=== PATIENT | male | born 1945 | race Two or more races ===

== ENCOUNTER 2017-07-24 17:53 | Emergency (ER) | payer MEDICARE, MEDICAID ==
[~2017-07-24] VITALS: Ht 190.5 cm; Wt 108.9 kg
[~2017-07-24 17:53] MED LIST: ASPI81CH43; ATEN-60; ENAL20TA93; EZET10TA38; FEXO30TA; GLIP-110; METF-370; PIOG45TA8; ZOLP-158
[2017-07-24 18:43] LABS: Basophils # (auto) 0.1 uL; Basophils % (auto) 0.9 % (0.0-2.0); Eosinophils # (auto) 0.1 uL; Eosinophils % (auto) 1.1 % (0.0-7.0); Hematocrit 44.6 % (41.0-53.0); Hemoglobin 14.5 g/dL (13.5-17.5); Lymphocytes # (auto) 0.9 uL; Lymphocytes % (auto) 7.2 % (10.0-50.0); Mean Corpuscular Hemoglobin 28.5 pg (28.0-32.0); Mean Corpuscular Hgb Conc. 32.6 g/dL (32.0-36.0); Mean Corpuscular Volume 87.3 fL (80.0-100.0); Monocytes # (auto) 1.2 uL; Monocytes % (auto) 9.2 % (0.0-12.0); Neutrophils # (auto) 10.3 uL; Neutrophils % (auto) 81.6 % (37.0-80.0); Nucleated Red Blood Cells % 0.8 %; Platelet Count (auto) 188 10^3/uL (140-450); Red Blood Cells 5.11 10^6/uL (4.5-5.90); Red Cell Distribution Width 13.8 % (11.8-14.3); White Blood Cell 12.6 10^3/uL (4.4-10.8)
[2017-07-24 19:05] LABS: Alanine Aminotransferase 41 U/L (16-61); Albumin 3.6 g/dL (3.4-5.0); Alkaline Phosphatase 92 U/L (45-117); Anion Gap 10 (5-15); Aspartate Aminotransferase 23 U/L (15-37); BUN/Creatinine Ratio 14.3; Bilirubin, Total 0.3 mg/dL (0.2-1.0); Blood Urea Nitrogen 14 mg/dL (7-18); Calcium 8.6 mg/dL (8.5-10.1); Carbon Dioxide 25 mmol/L (21-32); Chloride 106 mmol/L (98-107); GFR African American 97 mL/min; GFR Non-African American 80 mL/min; Glucose 123 mg/dL (74-106); Magnesium 1.7 mg/dL (1.6-2.6); Potassium 3.9 mmol/L (3.5-5.1); Sodium 141 mmol/L (136-145); Total Protein 7.7 g/dL (6.4-8.2)
[2017-07-24] MEDS ORDERED: ACETAMINOPHEN 500 MG TAB PO ONE (22:30)
[2017-07-24] MEDS ORDERED: LORazepam 2MG/ML-1ML VIAL IV ONE (22:45)
[2017-07-24 23:42] LABS: Urine Bacteria FEW /hpf (None Seen); Urine Blood Negative /uL (Negative); Urine Mucus FEW (None Seen); Urine Specific Gravity 1.026 (1.001-1.035); Urine WBC 2 /hpf (0 - 3)
[2017-07-25 00:25] VITALS: BP 130/68
[2017-07-25] MEDS ORDERED: LEVOFLOXACIN 250 MG TAB PO ONE (02:30)
== END 2017-07-25 03:00 | disposition home or self-care (01) ==
LOC: EDBD 17:53 → ER 17:57
DX: R42 Dizziness and giddiness (principal); R26.9 Unspecified abnormalities of gait and mobility; I10 Essential (primary) hypertension; E11.51 Type 2 diabetes mellitus with diabetic peripheral angiopathy without gangrene; Z95.5 Presence of coronary angioplasty implant and graft
CPT/HCPCS: 36415; 51702; 70450; 71045; 74176; 80053; 81001; 82962; 83735; 84484; 85025; 93005; 94761

== ENCOUNTER → 2017-10-26 | Outpatient (CLI) | payer MEDICARE, MEDICAID ==
[2017-10-26 13:35] LABS: Albumin 3.6 g/dL (3.4-5.0); BUN/Creatinine Ratio 17.8; Bilirubin, Total 0.5 mg/dL (0.2-1.0); Calcium 8.7 mg/dL (8.5-10.1); Potassium 4.5 mmol/L (3.5-5.1); Total Protein 7.7 g/dL (6.4-8.2)
== END | disposition home or self-care (01) ==
LOC: LAB 09:12
PROVIDERS: ATTEND Internal Medicine
DX: E78.5 Hyperlipidemia, unspecified (principal); I10 Essential (primary) hypertension; E11.9 Type 2 diabetes mellitus without complications
CPT/HCPCS: 36415; 80053; 80061; 83036

== ENCOUNTER → 2018-02-03 | Outpatient (CLI) | payer MEDICARE, MEDICAID ==
[2018-02-03 14:04] LABS: Calcium 8.8 mg/dL (8.5-10.1); Potassium 4.5 mmol/L (3.5-5.1)
[2018-02-03 14:12] LABS: Albumin 3.7 g/dL (3.4-5.0); BUN/Creatinine Ratio 19.8; Bilirubin, Total 0.6 mg/dL (0.2-1.0)
== END | disposition home or self-care (01) ==
LOC: LAB 09:04
PROVIDERS: ATTEND Internal Medicine
DX: E78.5 Hyperlipidemia, unspecified (principal); I10 Essential (primary) hypertension; E11.9 Type 2 diabetes mellitus without complications
CPT/HCPCS: 36415; 80053; 80061; 83036

== ENCOUNTER → 2018-02-27 | Outpatient (CLI) | payer MEDICARE, MEDICAID | END | disposition home or self-care (01) | LOC: LAB 09:05 | PROVIDERS: ATTEND Internal Medicine | DX: R94.4 Abnormal results of kidney function studies (principal) | CPT/HCPCS: 36415; 82565; 84520 ==

== ENCOUNTER 2018-04-06 15:44 | Inpatient (IN) | payer MEDICARE, MEDICAID ==
[~2018-04-06] VITALS: Ht 185.4 cm; Wt 103.0 kg
[2018-04-06 16:54] LABS: Chloride 105 mmol/L (98-107); Potassium 4.1 mmol/L (3.5-5.1); Sodium 140 mmol/L (136-145)
[2018-04-06 17:04] LABS: Alanine Aminotransferase 97 U/L (16-61); Albumin 3.4 g/dL (3.4-5.0); Alkaline Phosphatase 102 U/L (45-117); Anion Gap 8 (5-15); Aspartate Aminotransferase 46 U/L (15-37); BUN/Creatinine Ratio 17.4; Bilirubin, Total 0.3 mg/dL (0.2-1.0); Blood Urea Nitrogen 15 mg/dL (7-18); Calcium 8.2 mg/dL (8.5-10.1); Carbon Dioxide 27 mmol/L (21-32); GFR African American 113 mL/min; GFR Non-African American 93 mL/min; Glucose 219 mg/dL (74-106); Total Protein 7.1 g/dL (6.4-8.2)
[2018-04-06 17:10] LABS: Basophils # (auto) 0.1 uL; Basophils % (auto) 1.1 % (0.0-2.0); Eosinophils # (auto) 0.2 uL; Hematocrit 43.2 % (41.0-53.0); Hemoglobin 13.9 g/dL (13.5-17.5); Lymphocytes # (auto) 2.4 uL; Lymphocytes % (auto) 30.4 % (10.0-50.0); Mean Corpuscular Hemoglobin 29.1 pg (28.0-32.0); Mean Corpuscular Hgb Conc. 32.2 g/dL (32.0-36.0); Mean Corpuscular Volume 90.3 fL (80.0-100.0); Monocytes # (auto) 1.1 uL; Monocytes % (auto) 14.1 % (0.0-12.0); Neutrophils # (auto) 4.1 uL; Neutrophils % (auto) 52.4 % (37.0-80.0); Nucleated Red Blood Cells % 0.3 %; Platelet Count (auto) 194 10^3/uL (140-450); Red Blood Cells 4.78 10^6/uL (4.5-5.90); Red Cell Distribution Width 14.3 % (11.8-14.3); White Blood Cell 7.9 10^3/uL (4.4-10.8)
[2018-04-06] MEDS ORDERED: MORPHINE SULFATE 10 MG/ML INJ 1ML SDV IV PRN (19:30)
[2018-04-06] MEDS ORDERED: NITROGLYCERIN 0.4 MG SL TAB SL PRN (19:30)
[2018-04-06] MEDS ORDERED: DEXTROSE (50%) 50ML SYRG IV PRN (19:30)
[2018-04-06] MEDS ORDERED: CHOL20007 PO (21:37)
[2018-04-06] MEDS ORDERED: PIO30T PO (21:37)
[2018-04-06] MEDS ORDERED: ATO40T PO (21:37)
[2018-04-06] MEDS ORDERED: ATEN-60 PO (21:37)
[2018-04-06] MEDS ORDERED: ENA10T PO (21:37)
[2018-04-06] MEDS ORDERED: METF-372 PO (21:37)
[2018-04-06] MEDS ORDERED: ASPI81CH43 PO (21:37)
[2018-04-06] MEDS ORDERED: FLUT1SPR5 (21:37)
[2018-04-06] MEDS ORDERED: RISP0.2535 PO (21:37)
[2018-04-06] MEDS ORDERED: GLIP-115 PO (21:37)
[2018-04-06] MEDS ORDERED: AMLO2.5T6 PO (21:37)
[2018-04-06 21:38] VITALS: BP 147/78
[2018-04-06] MEDS: ACCU-CHEK COMFORT CURVE STRIP VI SCH (22:00)
[2018-04-06] MEDS: InsuLIN REG 1unit/0.01ml Soln (100units/ml) SC SCH (22:00)
[2018-04-06] MEDS: metFORMIN HYDROCHLORIDE 500 MG TAB PO SCH (22:33)
[2018-04-06] MEDS: ATORVASTATIN 20 MG TAB PO SCH (22:34)
--- NOTE | 2018-04-06 23:00 | NUR ---
PATIENT ADMITTED TO ROOM 294A. CAREGIVER AT BEDSIDE. PATIENT IS MENTALLY ELAYED. INCOMPREHENSIBLE. VERY HARD TO UNDERSTAND. SKIN CLEAR. INCONTINENT OF URINE. IV PATENT AND INTACT. SITTER ATR BEDSIDE
[2018-04-07 05:23] VITALS: BP 145/71
[2018-04-07] MEDS: ACCU-CHEK COMFORT CURVE STRIP VI SCH ×4 (06:37→21:39)
[2018-04-07] MEDS: InsuLIN REG 1unit/0.01ml Soln (100units/ml) SC SCH ×4 (06:37→21:40)
--- NOTE | 2018-04-07 07:15 | NUR ---
Opening Shift Note Received report from Marcela MARTINS. Assumed care of patient, awake and mentally delayed. Moves a lot on bed. Noted sitter at bedside. No S/S of distress/SOB or pain. Instructed on POC and to call for assist PRN, will continue to monitor for changes Q1hr and PRN.
[2018-04-07 08:00] VITALS: BP 125/73
[2018-04-07 08:44] VITALS: BP 125/73
[2018-04-07] MEDS: amLODIPine BESYLATE 5 MG TAB PO SCH (09:57)
[2018-04-07] MEDS: ENALAPRIL MALEATE 10 MG TAB PO SCH (09:58)
[2018-04-07] MEDS: ASPirin 81 mg TAB PO SCH (09:58)
[2018-04-07] MEDS: metFORMIN HYDROCHLORIDE 500 MG TAB PO SCH ×2 (09:59→17:28)
[2018-04-07] MEDS ORDERED: ATENOLOL 25 MG TAB PO SCH (10:00)
[2018-04-07] MEDS ORDERED: glipiZIDE 5 MG TAB PO SCH (10:00)
[2018-04-07] MEDS ORDERED: risperiDONE 1 MG TAB PO SCH (10:00)
[2018-04-07] MEDS: FLUTICASONE PROP NASAL SPR 0.05 % (50MCG) 16GM EACHNOSTRI SCH (10:28)
[2018-04-07] MEDS: ERGOCALCIFEROL 50,000 UNIT(1.25MG) CAP PO SCH (10:28)
[2018-04-07 11:55] VITALS: BP 150/76
[2018-04-07 12:56] LABS: Urine WBC None Seen /hpf (0 - 3)
[2018-04-07 13:29] LABS: Urine Bacteria NONE SEEN /hpf (None Seen); Urine Blood Negative /uL (Negative); Urine Specific Gravity 1.021 (1.001-1.035)
[2018-04-07] MEDS: ATENOLOL 25 MG TAB PO SCH (14:47)
--- NOTE | 2018-04-07 15:44 | NUR ---
INFORMED DR. HERNANDEZ BY PHONE ABOUT PATIENT'S CAREGIVER IF LUMBAR PUNCTURE IS NEEDED FOR THE PATIENT. WILL WAIT FOR CALL BACK.
--- NOTE | 2018-04-07 15:55 | NUR ---
Dr. Pickens at bedside. Received verbal order to place neurology consult for lumbar puncture.
[2018-04-07 17:02] VITALS: BP 133/69
--- NOTE | 2018-04-07 17:40 | NUR ---
INFORMED DR. OLIVERA ABOUT THE NEURO CONSULT AND PATIENT IS ASKING WHEN WILL BE THE LUMBAR PUNCTURE BE SCHEDULED. SAID HE WILL TALK TO THE PATIENT AND CAREGIVER.
--- NOTE | 2018-04-07 18:48 | NUR ---
PATIENT' S CAREGIVER, CARMELO, SIGNED THE CONSENTS FOR LUMBAR PUNCTURE AFTER DISCUSSING THE SAID PROCEDURE WITH DR. OLIVREA. LUMBAR PUNCTURE TRAY SET PREPARED AT BEDSIDE.
--- NOTE | 2018-04-07 19:30 | NUR ---
Opening Shift Note Received report from day shift RN. Patient, awake and mentally delayed. alert and orientated x3. direct support professional caregiver at bedside also sitter at bedside for safety. No S/S of distress/SOB on room air. Denies pain. Patient is scheduled to have bedside lumbar puncture tomorrow morning by Dr. Ordaz. Consents signed in chart, tray at bedside. Per report Patient does not need check list completed and does not need to be NPO. Instructed on POC and to call for assist PRN, will continue to monitor for changes Q1hr and PRN.
[2018-04-07 19:31] LABS: INR 0.98 (0.9-1.15); Prothrombin Time 10.5 sec (9.27-12.13)
[2018-04-07] MEDS: ATORVASTATIN 20 MG TAB PO SCH (21:39)
[2018-04-07] MEDS: risperiDONE 1 MG TAB PO SCH (21:39)
[2018-04-07 22:00] VITALS: BP 145/70
[2018-04-08 05:59] VITALS: BP 152/74
[2018-04-08] MEDS: ACCU-CHEK COMFORT CURVE STRIP VI SCH ×4 (06:22→20:33)
[2018-04-08] MEDS: InsuLIN REG 1unit/0.01ml Soln (100units/ml) SC SCH ×4 (06:22→20:34)
[2018-04-08] MEDS: glipiZIDE 5 MG TAB PO SCH (06:57)
--- NOTE | 2018-04-08 07:30 | NUR ---
RECEIVED REPORT FROM NIGHT NURSE. PATIENT RESTING IN BED, SITTER AT BEDSIDE. WILL CONTINUE TO MONITOR.
[2018-04-08 09:00] VITALS: BP 142/70
--- NOTE | 2018-04-08 09:30 | NUR ---
DOCTOR OLIVERA AT BEDSIDE. LUMBAR PUNCTURE PROCEDURE CONDUCTED. UNSUCCESSFUL AT LUMBAR PUNCTURE, RADIOLOGY CONSULTED.
[2018-04-08] MEDS ORDERED: LIDOCAINE 1% HCL (LOCAL ANESTH.) INJ 20ML MDV ID ONE (09:35)
[2018-04-08] MEDS ORDERED: LIDOCAINE 1% (LOCAL ANESTH.) PF 5ml SDV ONE (09:36)
[2018-04-08] MEDS: amLODIPine BESYLATE 5 MG TAB PO SCH (10:00)
[2018-04-08] MEDS: ASPirin 81 mg TAB PO SCH (10:00)
[2018-04-08] MEDS: ERGOCALCIFEROL 50,000 UNIT(1.25MG) CAP PO SCH (10:00)
[2018-04-08] MEDS: ENALAPRIL MALEATE 10 MG TAB PO SCH (10:01)
[2018-04-08] MEDS: metFORMIN HYDROCHLORIDE 500 MG TAB PO SCH ×2 (10:01→18:27)
[2018-04-08] MEDS: FLUTICASONE PROP NASAL SPR 0.05 % (50MCG) 16GM EACHNOSTRI SCH (10:41)
[2018-04-08 13:00] VITALS: BP 147/74
[2018-04-08] MEDS ORDERED: CHOLECALCIFEROL (VITD3) 1,000 UNIT TAB PO SCH (13:00)
[2018-04-08] MEDS: ATENOLOL 25 MG TAB PO SCH (15:37)
[2018-04-08 17:47] VITALS: BP 149/87
--- NOTE | 2018-04-08 19:30 | NUR ---
Opening Shift Note Received report from day shift RN. Patient, awake and mentally delayed. alert and orientated x3. Sitter at bedside for safety. No S/S of distress/SOB on room air. Denies pain. Instructed on POC and to call for assist PRN, will continue to monitor for changes Q1hr and PRN.
[2018-04-08] MEDS: ATORVASTATIN 20 MG TAB PO SCH (20:32)
[2018-04-08] MEDS: risperiDONE 1 MG TAB PO SCH (20:32)
[2018-04-08 22:00] VITALS: BP 136/73
[2018-04-09 05:00] VITALS: BP 142/70
[2018-04-09] MEDS: InsuLIN REG 1unit/0.01ml Soln (100units/ml) SC SCH ×4 (05:51→21:37)
[2018-04-09] MEDS: ACCU-CHEK COMFORT CURVE STRIP VI SCH ×4 (05:51→21:36)
[2018-04-09] MEDS: glipiZIDE 5 MG TAB PO SCH (06:08)
--- NOTE | 2018-04-09 07:30 | NUR ---
RECEIVED REPORT FROM NIGHT NURSE. PATIENT RESTING IN BED, NO DISTRESS NOTED. SITTER AT BEDSIDE.
[2018-04-09] MEDS: metFORMIN HYDROCHLORIDE 500 MG TAB PO SCH ×2 (08:12→18:09)
[2018-04-09 08:54] VITALS: BP 140/68
[2018-04-09] MEDS: CHOLECALCIFEROL (VITD3) 1,000 UNIT TAB PO SCH (10:32)
[2018-04-09] MEDS: ENALAPRIL MALEATE 10 MG TAB PO SCH (10:33)
[2018-04-09] MEDS: ASPirin 81 mg TAB PO SCH (10:33)
[2018-04-09] MEDS: amLODIPine BESYLATE 5 MG TAB PO SCH (10:33)
[2018-04-09] MEDS: FLUTICASONE PROP NASAL SPR 0.05 % (50MCG) 16GM EACHNOSTRI SCH (10:37)
[2018-04-09 13:00] VITALS: BP 143/86
[2018-04-09] MEDS ORDERED: LORazepam 2MG/ML-1ML VIAL IV PRN (13:30)
[2018-04-09] MEDS: ATENOLOL 25 MG TAB PO SCH (15:16)
[2018-04-09 17:35] VITALS: BP 146/76
--- NOTE | 2018-04-09 19:31 | NUR ---
Opening Shift Note Assumed care of patient, awake and alert. No S/S of distress/SOB. Pt is currently in bed with the rails up x2, bed is locked in the lowest position and call light is within reach. 20Ga IV in the right hand flushes without discomfort. Instructed on POC and to call for assist as needed. Will continue to monitor.
[2018-04-09] MEDS: risperiDONE 1 MG TAB PO SCH (21:36)
[2018-04-09] MEDS: ATORVASTATIN 20 MG TAB PO SCH (21:36)
[2018-04-09 21:38] VITALS: BP 143/69
[2018-04-10 05:09] VITALS: BP 134/74
[2018-04-10] MEDS: glipiZIDE 5 MG TAB PO SCH (06:16)
[2018-04-10] MEDS: InsuLIN REG 1unit/0.01ml Soln (100units/ml) SC SCH ×4 (06:16→22:00)
[2018-04-10] MEDS: ACCU-CHEK COMFORT CURVE STRIP VI SCH ×4 (06:17→22:00)
[2018-04-10] MEDS: metFORMIN HYDROCHLORIDE 500 MG TAB PO SCH ×2 (07:47→17:52)
[2018-04-10 08:00] VITALS: BP 134/76
--- NOTE | 2018-04-10 08:15 | NUR ---
Opening Shift Note Assumed care of patient, awake and alert with confusion. Respiratory even and unlabored. No S/S of distress/SOB or pain. Skin is warm and dry to touch, no s/s of hyperglycemia or hypoglycemia noted. Instructed on POC and to call for assist PRN, will continue to monitor for changes Q1hr and PRN.
[2018-04-10 08:49] VITALS: BP 134/76
[2018-04-10] MEDS ORDERED: LIDOCAINE 2% (LOCAL ANESTH.) PF 5ml SDV ONE (09:11)
[2018-04-10] MEDS: CHOLECALCIFEROL (VITD3) 1,000 UNIT TAB PO SCH (09:12)
[2018-04-10] MEDS: amLODIPine BESYLATE 5 MG TAB PO SCH (09:13)
[2018-04-10] MEDS: ENALAPRIL MALEATE 10 MG TAB PO SCH (09:13)
[2018-04-10] MEDS: FLUTICASONE PROP NASAL SPR 0.05 % (50MCG) 16GM EACHNOSTRI SCH (09:13)
[2018-04-10] MEDS: ASPirin 81 mg TAB PO SCH (09:13)
--- NOTE | 2018-04-10 10:45 | NUR ---
Patient came back from radiology s/p lumbar puncture, instructed patient to lie flat 4 hours. Patient verbalized understanding.
--- NOTE | 2018-04-10 11:10 | NUR ---
Patient off unit for lumbar puncture. Addendum: 04/10/18 at 1457 by DEJAH MORAN RN patient left around 0945 AM.
[2018-04-10 11:24] LABS: CSF White Blood Cells 1 CUMM (0-5)
[2018-04-10 11:31] LABS: Protein, CSF 61.7 mg/dL (15-45)
--- NOTE | 2018-04-10 14:33 | NUR ---
Nutrition Assessment Notes please see attached link for complete assessment Est. Needs ABW [id number] kcal (23-25 kcal/kgBW), 95-104 gms pro (1.0-1.1gms/kgBW). Will continue to monitor pertinent labs and reassess nutrient need prn Addendum: 04/10/18 at [address] Amended: Links added.
--- NOTE | 2018-04-10 14:49 | NUR ---
IV insertion IV access obtained, via clean sterile technique by inserting 22 gauge catheter at after attempt(s). IV secured properly. No trauma to site. Patient tolerated well.
[2018-04-10] MEDS: ATENOLOL 25 MG TAB PO SCH (15:37)
--- NOTE | 2018-04-10 19:30 | NUR ---
Opening Shift Note Assumed care of patient, oriented to self only, speech unclear, cooperative to care, sitter at bedside. No S/S of distress/SOB or pain. Safety precaution in place, will continue to monitor for changes Q1hr and PRN.
--- NOTE | 2018-04-10 19:55 | NUR ---
Dr. Ordaz at bedside. Walked patient about 40ft, gait unsteady at this time, will continue to monitor
[2018-04-10 20:00] VITALS: BP 141/68
[2018-04-10] MEDS: ATORVASTATIN 20 MG TAB PO SCH (21:43)
[2018-04-10] MEDS: risperiDONE 1 MG TAB PO SCH (21:43)
[2018-04-11 05:04] VITALS: BP 140/75
[2018-04-11] MEDS: InsuLIN REG 1unit/0.01ml Soln (100units/ml) SC SCH ×4 (06:11→22:00)
[2018-04-11] MEDS: ACCU-CHEK COMFORT CURVE STRIP VI SCH ×4 (06:11→22:00)
[2018-04-11] MEDS: glipiZIDE 5 MG TAB PO SCH (06:12)
[2018-04-11 09:07] VITALS: BP 119/49
[2018-04-11] MEDS: amLODIPine BESYLATE 5 MG TAB PO SCH (10:00)
[2018-04-11] MEDS: ENALAPRIL MALEATE 10 MG TAB PO SCH (10:00)
[2018-04-11] MEDS: ASPirin 81 mg TAB PO SCH (10:42)
[2018-04-11] MEDS: CHOLECALCIFEROL (VITD3) 1,000 UNIT TAB PO SCH (10:43)
[2018-04-11] MEDS: metFORMIN HYDROCHLORIDE 500 MG TAB PO SCH ×2 (10:44→18:00)
[2018-04-11] MEDS: FLUTICASONE PROP NASAL SPR 0.05 % (50MCG) 16GM EACHNOSTRI SCH (10:45)
[2018-04-11 14:43] VITALS: BP 129/64
[2018-04-11] MEDS: ATENOLOL 25 MG TAB PO SCH (15:00)
[2018-04-11 17:24] VITALS: BP 136/72
--- NOTE | 2018-04-11 19:19 | NUR ---
Opening Shift Note Assumed care of patient, awake and alert to himself only at this time. No S/S of distress/SOB or pain. Instructed on plan of care and to call for assistance as needed. Bed is locked and lowered with side rails up x2. Sitter at bedside. Call light within reach. Will continue to monitor.
--- NOTE | 2018-04-11 19:21 | NUR ---
Closing Note Patient resting in bed. mechanical reliability engineer at bedside. Sitter at bedside. Report given. Will endorse care to the overnight associate RN.
--- NOTE | 2018-04-11 19:35 | NUR ---
Opening Shift Note Assumed care of patient, oriented to self only, speech unclear, cooperative to care, sitter at bedside. No S/S of distress/SOB or pain. Safety precaution in place, call light within reach, will continue to monitor for changes Q1hr and PRN.
--- NOTE | 2018-04-11 20:20 | NUR ---
Dr. Ordaz at bedside. Ambulated patient in the hallway and able to walk around 37 seconds going and 43 seconds back, gait still unsteady, will continue care
[2018-04-11] MEDS: risperiDONE 1 MG TAB PO SCH (21:41)
[2018-04-11] MEDS: ATORVASTATIN 20 MG TAB PO SCH (21:41)
[2018-04-11 22:08] VITALS: BP 117/60
[2018-04-12 04:59] VITALS: BP 138/78
[2018-04-12] MEDS: InsuLIN REG 1unit/0.01ml Soln (100units/ml) SC SCH ×4 (05:42→21:35)
[2018-04-12] MEDS: ACCU-CHEK COMFORT CURVE STRIP VI SCH ×4 (05:42→21:34)
[2018-04-12] MEDS: glipiZIDE 5 MG TAB PO SCH (05:43)
--- NOTE | 2018-04-12 07:30 | NUR ---
Opening Shift Note Assuming care of patient at this time. Patient is awake and alert to himself and location at this time. Patient's speech is incomprehensible. Patient shows no signs or symptoms of distress or shortness of breath. Patient is resting comfortably in bed with bed locked and lowered to the lowest position, side rails up x2. Instructed patient on the plan of care for today and to call for assistance as needed. Sitter at bedside. Will continue to monitor.
[2018-04-12] MEDS: metFORMIN HYDROCHLORIDE 500 MG TAB PO SCH ×2 (08:59→17:43)
[2018-04-12] MEDS: ASPirin 81 mg TAB PO SCH (08:59)
[2018-04-12] MEDS: CHOLECALCIFEROL (VITD3) 1,000 UNIT TAB PO SCH (08:59)
[2018-04-12] MEDS: FLUTICASONE PROP NASAL SPR 0.05 % (50MCG) 16GM EACHNOSTRI SCH (09:00)
[2018-04-12] MEDS: ENALAPRIL MALEATE 10 MG TAB PO SCH (09:03)
[2018-04-12] MEDS: amLODIPine BESYLATE 5 MG TAB PO SCH (09:03)
[2018-04-12 09:27] VITALS: BP 138/78
--- NOTE | 2018-04-12 09:30 | NUR ---
Re: Lumbar Puncture Received a call from Dr. Ordaz, there will be a repeat lumbar puncture today. LAKSHMI Soto has given me consent forms. Will have patient's caregivers sign consent forms when they arrive.
--- NOTE | 2018-04-12 10:00 | NUR ---
UNABLE TO DO LP AT THIS TIME. LITHOGRAPHIC ETCHER REFUSING TO SIGN CONSENT BEFORE TALKING TO DR OLIVERA
--- NOTE | 2018-04-12 11:35 | NUR ---
RE: Patient off Unit Patient is off unit at this time, having procedure.
[2018-04-12] MEDS ORDERED: LIDOCAINE 2% (LOCAL ANESTH.) PF 5ml SDV ONE ×3 (11:49→12:30)
--- NOTE | 2018-04-12 13:15 | NUR ---
Re: Page to Dr. Ordaz Paged Dr. Ordaz at this time. Awaiting call back.
--- NOTE | 2018-04-12 13:15 | NUR ---
Re: Patient back on unit Patient is back on unit at this time.
--- NOTE | 2018-04-12 13:45 | NUR ---
Re: Lab Sample Took sample from lumbar puncture over to laboratory at this time. Paged Dr. Ordaz to get orders for sample. Awaiting response.
[2018-04-12 17:00] VITALS: BP 153/77
[2018-04-12] MEDS: ATENOLOL 25 MG TAB PO SCH (17:40)
--- NOTE | 2018-04-12 18:55 | NUR ---
Closing Note Patient is resting in bed comfortably. street vendor at bedside. Patient shows no signs of distress of pain. Will endorse care to the warehouse supervisor 3rd shift RN.
--- NOTE | 2018-04-12 19:04 | NUR ---
Re: Bedside Commode Patient up to bedside commode at this time.
[2018-04-12 20:39] LABS: Protein, CSF 59.6 mg/dL (15-45)
[2018-04-12] MEDS: risperiDONE 1 MG TAB PO SCH (21:06)
[2018-04-12] MEDS: ATORVASTATIN 20 MG TAB PO SCH (21:34)
[2018-04-12 21:58] VITALS: BP 144/75
[2018-04-12 22:52] LABS: CSF White Blood Cells 0 CUMM (0-5)
[2018-04-13 05:00] VITALS: BP 132/66
[2018-04-13] MEDS: ACCU-CHEK COMFORT CURVE STRIP VI SCH ×4 (06:41→21:24)
[2018-04-13] MEDS: glipiZIDE 5 MG TAB PO SCH (06:41)
[2018-04-13] MEDS: InsuLIN REG 1unit/0.01ml Soln (100units/ml) SC SCH ×4 (06:41→21:24)
[2018-04-13] MEDS: metFORMIN HYDROCHLORIDE 500 MG TAB PO SCH ×2 (08:00→18:00)
--- NOTE | 2018-04-13 08:00 | NUR ---
MEDICATION HELD METFORMIN 1,000 MG HELD DUE TO THE PATIENT RECEIVING LUMBAR PUNCTURE ON 04/12/18 @ 1057 A.M. PER [facility], IN RADIOLOGY STATES THAT CONTRAST WAS USED DURING THE FLOUROSCOPIC-GUIDED LUMBAR PUNCTURE OF THE PATIENT YESTERDAY.
[2018-04-13 09:00] VITALS: BP 132/69
[2018-04-13] MEDS: FLUTICASONE PROP NASAL SPR 0.05 % (50MCG) 16GM EACHNOSTRI SCH (10:00)
[2018-04-13] MEDS: ENALAPRIL MALEATE 10 MG TAB PO SCH (10:54)
[2018-04-13] MEDS: CHOLECALCIFEROL (VITD3) 1,000 UNIT TAB PO SCH (10:55)
[2018-04-13] MEDS: ASPirin 81 mg TAB PO SCH (10:56)
[2018-04-13] MEDS: amLODIPine BESYLATE 5 MG TAB PO SCH (10:57)
[2018-04-13 13:00] VITALS: BP 119/61
--- NOTE | 2018-04-13 14:39 | NUR ---
Nutrition Follow-up Notes Wt.: 102.6 kg Pt was sleeping with no family by beside. per records pt to have spinal tap today. pt with no distress noted. pt is currently on CCHO 60 gm 2 gm na diet with adequate PO of > 75% x 6 per RN doc Est. Needs ABW [id number] kcal (23-25 kcal/kgBW), 95-104 gms pro (1.0-1.1gms/kgBW). Will continue to monitor pertinent labs and reassess nutrient need prn Labs: No new labs today 04/06: GLU 219 H, CA 8.2 L. Skin: Quentin scale 18, mod risk skin intact per RN doc GI: Pt had 1 BM today per dat instructor. PES: Altered nutrition related lab values r/t current/chronic medical condition aeb hyperglycemia, hypocalcemia Decreased nutrient needs r/t adiposity aeb pt`s high BMI of 31.3 kgm2 Will continue to monitor PO intake, skin status, pertinent labs and weight trend. F/u in 3-5 days. Rec.: 1.) refer to CDE on DC. 2) continue current plan of care
[2018-04-13] MEDS: ATENOLOL 25 MG TAB PO SCH (15:00)
[2018-04-13 17:00] VITALS: BP 128/55
--- NOTE | 2018-04-13 18:15 | NUR ---
Dr. Ordaz is at the patient's bedside and walking the patient in the hallway. Per Dr. Ordaz, the patient's discharge is to be held at this time until further neurological testing. Charge nurse, and Dr. Celio chu.
[2018-04-13 20:00] VITALS: BP 128/55
[2018-04-13] MEDS: risperiDONE 1 MG TAB PO SCH (20:09)
[2018-04-13 21:04] VITALS: BP 110/51
[2018-04-13] MEDS: ATORVASTATIN 20 MG TAB PO SCH (21:24)
[2018-04-14 04:17] VITALS: BP 113/58
[2018-04-14] MEDS: ACCU-CHEK COMFORT CURVE STRIP VI SCH ×4 (06:48→21:21)
[2018-04-14] MEDS: glipiZIDE 5 MG TAB PO SCH (06:48)
[2018-04-14] MEDS: InsuLIN REG 1unit/0.01ml Soln (100units/ml) SC SCH ×4 (06:48→21:21)
[2018-04-14] MEDS: metFORMIN HYDROCHLORIDE 500 MG TAB PO SCH ×2 (07:07→17:46)
--- NOTE | 2018-04-14 07:50 | NUR ---
DR JOSELIN OLSEN MD requests to be present with PT. Attempted to page PT. Sitter and caregiver at bedside made aware to call me before allowing patient to get up with PT.
[2018-04-14 09:00] VITALS: BP 123/62
[2018-04-14] MEDS: ENALAPRIL MALEATE 10 MG TAB PO SCH (10:00)
[2018-04-14] MEDS: amLODIPine BESYLATE 5 MG TAB PO SCH (10:00)
--- NOTE | 2018-04-14 10:20 | NUR ---
INSULIN Caregiver does not want patient to have insulin, stating patient's blood sugar drops.
[2018-04-14] MEDS: ASPirin 81 mg TAB PO SCH (10:21)
[2018-04-14] MEDS: CHOLECALCIFEROL (VITD3) 1,000 UNIT TAB PO SCH (10:21)
[2018-04-14] MEDS: FLUTICASONE PROP NASAL SPR 0.05 % (50MCG) 16GM EACHNOSTRI SCH (10:22)
--- NOTE | 2018-04-14 10:33 | NUR ---
MEDICATIONS Reviewed medications with Caregiver at bedside and patient. Medications reviewed and held as per caregiver and decreased HR.
--- NOTE | 2018-04-14 10:53 | NUR ---
PT PER PT, RE-ORDER PT FOR SAFETY EVAL. ORDER NOTED. PT STATES THEY WILL NOTIFY WITH PT.
[2018-04-14 13:00] VITALS: BP 101/61
[2018-04-14] MEDS: ATENOLOL 25 MG TAB PO SCH (15:00)
--- NOTE | 2018-04-14 16:20 | NUR ---
PHYSICAL THERAPY Patient out of bed to ambulate with PT and Dr Ordaz at bedside. Patient tolerated well. Patient sitting in chair.
--- NOTE | 2018-04-14 16:45 | NUR ---
Dr Celio lazo. Plans for possible D/C tomorrow.
[2018-04-14 17:00] VITALS: BP 125/82
[2018-04-14 20:00] VITALS: BP 123/65
[2018-04-14] MEDS: risperiDONE 1 MG TAB PO SCH (20:00)
[2018-04-14 20:22] VITALS: BP 123/65
[2018-04-14] MEDS: ATORVASTATIN 20 MG TAB PO SCH (21:24)
[2018-04-15 04:08] VITALS: BP 132/61
[2018-04-15] MEDS: InsuLIN REG 1unit/0.01ml Soln (100units/ml) SC SCH ×4 (05:44→17:00)
[2018-04-15] MEDS: ACCU-CHEK COMFORT CURVE STRIP VI SCH ×3 (05:44→18:10)
[2018-04-15] MEDS: glipiZIDE 5 MG TAB PO SCH (06:22)
[2018-04-15] MEDS: metFORMIN HYDROCHLORIDE 500 MG TAB PO SCH ×2 (08:35→18:11)
[2018-04-15 08:36] VITALS: BP 143/75
[2018-04-15] MEDS: FLUTICASONE PROP NASAL SPR 0.05 % (50MCG) 16GM EACHNOSTRI SCH (09:35)
[2018-04-15] MEDS: ASPirin 81 mg TAB PO SCH (09:36)
[2018-04-15] MEDS: CHOLECALCIFEROL (VITD3) 1,000 UNIT TAB PO SCH (09:36)
[2018-04-15] MEDS: amLODIPine BESYLATE 5 MG TAB PO SCH (09:37)
[2018-04-15] MEDS: ENALAPRIL MALEATE 10 MG TAB PO SCH (09:37)
[2018-04-15 12:57] VITALS: BP 111/59
[2018-04-15] MEDS: ATENOLOL 25 MG TAB PO SCH (15:00)
--- NOTE | 2018-04-15 16:00 | NUR ---
MD OLIVERA AT BEDSIDE.
[2018-04-15 16:42] VITALS: BP 109/61
--- NOTE | 2018-04-15 16:54 | NUR ---
CONTACTED MD HERNANDEZ ABOUT PATIENT DISCHARGE ORDER FROM 04/13/18. AWAITING RESPONSE.
--- NOTE | 2018-04-15 18:00 | NUR ---
PER MD HERNANDEZ OK TO DISCHARGE PATIENT TODAY. WILL CONTINUE WITH ORDERS. UPDATED MD ON CAREGIVER REQUEST FOR WHEELCHAIR AND TRANSPORT CHAIR.
--- NOTE | 2018-04-15 19:29 | NUR ---
CLOSING NOTE REPORT GIVEN TO NUCLEAR MEDICINE TECHNICIAN RNMAMTA. RN AWARE OF PATIENT PENDING DISCHARGE, PAPERWORK LEFT WITH LOW VISION THERAPIST. CAREGIVER AND SITTER AT BEDSIDE. PATIENT IN BED LOW LOCK POSITION, CALL LIGHT WITHIN REACH. NO S/S OF DISTRESS NOTED.
[2018-04-15 19:39] VITALS: BP 111/59
--- NOTE | 2018-04-15 20:23 | NUR ---
Discharge instructions given as ordered to caregiver Mary. Encourage to follow up with PMD as instructed. All questions and concerns addressed. Caregiver verbalized understanding. Medication reconciliation form completed and copy given to patient. IV removed with catheter intact, pressure dressing applied. Patient taken to vehicle via wheelchair with all personal belongings, accompanied by staff and caregiver. No distress noted at time of departure.
== END 2018-04-15 20:23 | disposition home or self-care (01) | DRG 58 ==
LOC: ER 15:44 → TELE 19:46 → TELE-WESTW 21:00 → WEST WING 04-09 12:03
PROVIDERS: ADMIT Internal Medicine Cardiovascular Disease; ATTEND Internal Medicine Cardiovascular Disease
PROC: 009U3ZZ Drainage of Spinal Canal, Percutaneous Approach (ICD-10-PCS; principal; 2018-04-10)
PROC: B01B1ZZ Fluoroscopy of Spinal Cord using Low Osmolar Contrast (ICD-10-PCS; 2018-04-10)
PROC: 009U3ZZ Drainage of Spinal Canal, Percutaneous Approach (ICD-10-PCS; 2018-04-12)
PROC: B01B1ZZ Fluoroscopy of Spinal Cord using Low Osmolar Contrast (ICD-10-PCS; 2018-04-12)
DX: G91.2 (Idiopathic) normal pressure hydrocephalus (principal); G93.89 Other specified disorders of brain; S09.90XA Unspecified injury of head, initial encounter; E11.9 Type 2 diabetes mellitus without complications; G40.909 Epilepsy, unspecified, not intractable, without status epilepticus; E66.9 Obesity, unspecified; W18.30XA Fall on same level, unspecified, initial encounter; F79 Unspecified intellectual disabilities; F84.0 Autistic disorder; I25.10 Atherosclerotic heart disease of native coronary artery without angina pectoris; R26.9 Unspecified abnormalities of gait and mobility; H02.401 Unspecified ptosis of right eyelid; E78.5 Hyperlipidemia, unspecified; I10 Essential (primary) hypertension; I67.2 Cerebral atherosclerosis; F09 Unspecified mental disorder due to known physiological condition; R29.6 Repeated falls; Z82.49 Family history of ischemic heart disease and other diseases of the circulatory system; Z83.3 Family history of diabetes mellitus; Z95.5 Presence of coronary angioplasty implant and graft; Z79.82 Long term (current) use of aspirin; Z79.899 Other long term (current) drug therapy; Z79.84 Long term (current) use of oral hypoglycemic drugs; Z82.61 Family history of arthritis; Y93.89 Activity, other specified; Y92.098 Other place in other non-institutional residence as the place of occurrence of the external cause; Z68.30 Body mass index [BMI] 30.0-30.9, adult; Y99.8 Other external cause status
CPT/HCPCS: 36415; 62272; 70450; 80053; 81001; 82945; 82962; 83735; 84157; 84484; 85025; 85610; 89051; 93005; 96372; 97110; 97116; 97163; 97530; G0378; J1815; J2001

== ENCOUNTER → 2018-05-05 | Outpatient (CLI) | payer MEDICARE, MEDICAID ==
[~2018-05-05] MED LIST changes: +AMLO2.5T6 PO; -ASPI81CH43; +ASPI81CH43 PO; -ATEN-60; +ATEN-60 PO; +ATO40T PO; +CHOL20007 PO; +ENA10T PO; -ENAL20TA93; -EZET10TA38; -FEXO30TA; +FLUT1SPR5; -GLIP-110; +GLIP-115 PO; -METF-370; +METF-372 PO; +PIO30T PO; -PIOG45TA8; +RISP0.2535 PO; -ZOLP-158
[2018-05-05 12:40] LABS: Anion Gap 8 (5-15); BUN/Creatinine Ratio 16.3; Blood Urea Nitrogen 15 mg/dL (7-18); Calcium 8.8 mg/dL (8.5-10.1); Carbon Dioxide 27 mmol/L (21-32); Chloride 105 mmol/L (98-107); GFR African American 105 mL/min; GFR Non-African American 86 mL/min; Glucose 148 mg/dL (74-106); Sodium 140 mmol/L (136-145)
== END | disposition home or self-care (01) ==
LOC: LAB 11:09
PROVIDERS: ATTEND Internal Medicine Cardiovascular Disease
DX: E11.40 Type 2 diabetes mellitus with diabetic neuropathy, unspecified (principal); I10 Essential (primary) hypertension
CPT/HCPCS: 36415; 80048; 83036

== ENCOUNTER → 2018-05-18 | Outpatient (CLI) | payer MEDICARE, MEDICAID | END | disposition home or self-care (01) | LOC: LAB 13:34 | PROVIDERS: ATTEND Internal Medicine Cardiovascular Disease | DX: I34.1 Nonrheumatic mitral (valve) prolapse (principal); I11.9 Hypertensive heart disease without heart failure; I25.10 Atherosclerotic heart disease of native coronary artery without angina pectoris; E11.9 Type 2 diabetes mellitus without complications; Z79.899 Other long term (current) drug therapy | CPT/HCPCS: 93306 ==

== ENCOUNTER → 2018-05-22 | Outpatient (CLI) | payer MEDICARE, MEDICAID ==
[~2018-05-22] VITALS: Ht 185.4 cm; Wt 107.0 kg
[~2018-05-22] MED LIST changes: +ADENOSINE 90 MG in GIVE UN-DILUTED 0 ML IV ONE; +ADENOSINE 90 MG/30 ML INJ IV ONE
== END | disposition home or self-care (01) ==
LOC: Rad HDHVI 09:03
PROVIDERS: ATTEND Internal Medicine Cardiovascular Disease
DX: Z01.818 Encounter for other preprocedural examination (principal); I10 Essential (primary) hypertension; E78.00 Pure hypercholesterolemia, unspecified; E11.9 Type 2 diabetes mellitus without complications
CPT/HCPCS: 78452; 93005; 96374; 96375; A9500; J0153

== ENCOUNTER → 2018-05-23 | Outpatient (CLI) | payer MEDICARE, MEDICAID ==
[~2018-05-23] MED LIST changes: -ADENOSINE 90 MG in GIVE UN-DILUTED 0 ML IV ONE; -ADENOSINE 90 MG/30 ML INJ IV ONE
[2018-05-23 11:51] LABS: Basophils # (auto) 0 uL; Basophils % (auto) 0.4 % (0.0-2.0); Eosinophils # (auto) 0.1 uL; Eosinophils % (auto) 1.3 % (0.0-7.0); Hematocrit 45.1 % (41.0-53.0); Hemoglobin 14.3 g/dL (13.5-17.5); Lymphocytes # (auto) 1.8 uL; Mean Corpuscular Hemoglobin 28.9 pg (28.0-32.0); Mean Corpuscular Hgb Conc. 31.8 g/dL (32.0-36.0); Mean Corpuscular Volume 90.6 fL (80.0-100.0); Monocytes # (auto) 0.7 uL; Monocytes % (auto) 8.3 % (0.0-12.0); Neutrophils # (auto) 5.3 uL; Nucleated Red Blood Cells % 0.1 %; Platelet Count (auto) 190 10^3/uL (140-450); Red Blood Cells 4.97 10^6/uL (4.5-5.90); Red Cell Distribution Width 14.5 % (11.8-14.3); White Blood Cell 7.9 10^3/uL (4.4-10.8)
[2018-05-23 12:03] LABS: Urine Bacteria NONE SEEN /hpf (None Seen); Urine Blood Negative /uL (Negative); Urine Specific Gravity 1.017 (1.001-1.035); Urine WBC 4 /hpf (0 - 3)
[2018-05-23 12:04] LABS: INR 0.97 (0.9-1.15); Partial Thromboplastin Time 27.9 sec (23.78-33.04); Prothrombin Time 10.4 sec (9.27-12.13)
[2018-05-23 12:05] LABS: BUN/Creatinine Ratio 16.5; Calcium 8.4 mg/dL (8.5-10.1); Potassium 4.2 mmol/L (3.5-5.1)
== END | disposition home or self-care (01) ==
LOC: Rad HDHVI 09:30
PROVIDERS: ATTEND Internal Medicine Cardiovascular Disease
DX: D64.9 Anemia, unspecified (principal); N39.0 Urinary tract infection, site not specified; A49.02 Methicillin resistant Staphylococcus aureus infection, unspecified site; I10 Essential (primary) hypertension; R79.1 Abnormal coagulation profile
CPT/HCPCS: 36415; 71046; 80048; 81001; 85025; 85610; 85730; 87081

== ENCOUNTER 2018-06-07 19:22 | Emergency (ER) | payer MEDICARE, MEDICAID ==
[~2018-06-07] VITALS: Ht 182.9 cm; Wt 108.9 kg
[2018-06-08 01:49] LABS: Basophils # (auto) 0 uL; Basophils % (auto) 0.4 % (0.0-2.0); Eosinophils # (auto) 0 uL; Hematocrit 44.2 % (41.0-53.0); Hemoglobin 14.6 g/dL (13.5-17.5); Lymphocytes # (auto) 0.6 uL; Lymphocytes % (auto) 5.8 % (10.0-50.0); Monocytes # (auto) 0.7 uL; Monocytes % (auto) 7.2 % (0.0-12.0); Neutrophils # (auto) 8.5 uL; Neutrophils % (auto) 86.6 % (37.0-80.0); Platelet Count (auto) 184 10^3/uL (140-450); Red Blood Cells 5.03 10^6/uL (4.5-5.90); Red Cell Distribution Width 14.2 % (11.8-14.3); White Blood Cell 9.8 10^3/uL (4.4-10.8)
[2018-06-08] MEDS ORDERED: SODIUM CHLORIDE 0.9% 3,250 ML IV ONE (02:00)
[2018-06-08 02:05] LABS: Partial Thromboplastin Time 26.9 sec (23.78-33.04); Prothrombin Time 10.7 sec (9.27-12.13)
[2018-06-08 02:08] LABS: Alanine Aminotransferase 51 U/L (16-61); Anion Gap 10 (5-15); Aspartate Aminotransferase 23 U/L (15-37); BUN/Creatinine Ratio 28.7; Blood Urea Nitrogen 25 mg/dL (7-18); Calcium 8.2 mg/dL (8.5-10.1); Carbon Dioxide 22 mmol/L (21-32); Chloride 107 mmol/L (98-107); GFR African American 112 mL/min; GFR Non-African American 92 mL/min; Glucose 141 mg/dL (74-106); Potassium 4.2 mmol/L (3.5-5.1); Sodium 139 mmol/L (136-145)
[2018-06-08 02:13] LABS: Alkaline Phosphatase 87 U/L (45-117); Bilirubin, Total 0.4 mg/dL (0.2-1.0); Total Protein 6.7 g/dL (6.4-8.2)
[2018-06-08 03:18] LABS: Fibrinogen 350.3 mg/dL (177-375)
[2018-06-08 04:22] LABS: Lactic Acid w/Reflex 3.3 mmol/L (0.4-2.0)
[2018-06-08] MEDS: PIPERACILLIN-TAZOB 3.375GM 100 ML IV SCH ×3 (06:30→18:00)
[2018-06-08] MEDS: VANCOMYCIN 1GM/250ML 250 ML IV SCH ×2 (10:00→15:40)
[2018-06-08 16:02] LABS: Urine Bacteria NONE SEEN /hpf (None Seen); Urine Blood Negative /uL (Negative); Urine Specific Gravity 1.026 (1.001-1.035); Urine WBC 3 /hpf (0 - 3)
[2018-06-08 16:18] LABS: Alcohol, Urine < 3.0 mg/dL (0-5); Amphetamine Screen, Urine NEGATIVE (NEGATIVE); Barbiturate Scree,Urine NEGATIVE (NEGATIVE); Benzodiazephine Screen, Urine NEGATIVE (NEGATIVE); Cannabinoid Screen, Urine NEGATIVE (NEGATIVE); Cocaine Screen, Urine NEGATIVE (NEGATIVE); Opiate Scree,Urine NEGATIVE (NEGATIVE); Phencyclidine Screen, Urine NEGATIVE (NEGATIVE)
[2018-06-09] MEDS: PIPERACILLIN-TAZOB 3.375GM 100 ML IV SCH ×4 (00:02→18:20)
[2018-06-09] MEDS ORDERED: SODIUM CHLORIDE 0.9% 1,000 ML IV ONE (09:15)
[2018-06-09] MEDS: VANCOMYCIN 1GM/250ML 250 ML IV SCH ×2 (10:00→22:11)
[2018-06-09 23:23] VITALS: BP 115/49
== END 2018-06-09 23:59 | disposition short-term general hospital (02) ==
LOC: EDBD 19:22 → ER 19:29
DX: R41.82 Altered mental status, unspecified (principal); G91.9 Hydrocephalus, unspecified; I10 Essential (primary) hypertension; Z98.61 Coronary angioplasty status; Z79.82 Long term (current) use of aspirin; Z79.899 Other long term (current) drug therapy
CPT/HCPCS: 36415; 51702; 70450; 71045; 78582; 80053; 80202; 80307; 81001; 82553; 82565; 82962; 83605; 83880; 84484; 85025; 85379; 85384; 85610; 85730; 87040; 87086; 93005; 94761; 96365; 96366; 96368; 99285; A9540; A9558

== ENCOUNTER → 2018-06-28 | Outpatient (CLI) | payer MEDICARE, MEDICAID ==
[2018-06-28 16:19] LABS: BUN/Creatinine Ratio 17.5; Calcium 9.1 mg/dL (8.5-10.1); Potassium 3.8 mmol/L (3.5-5.1)
== END | disposition home or self-care (01) ==
LOC: Rad HDHVI 11:48
PROVIDERS: ATTEND Internal Medicine Cardiovascular Disease
DX: I67.2 Cerebral atherosclerosis (principal); G40.89 Other seizures; Z79.899 Other long term (current) drug therapy; I10 Essential (primary) hypertension; Z87.891 Personal history of nicotine dependence
CPT/HCPCS: 36415; 70450; 80048; 82542

== ENCOUNTER → 2018-08-29 | Outpatient (CLI) | payer MEDICARE, MEDICAID ==
[~2018-08-29] MED LIST changes: +IOHEXOL 350 MG/ML 100ML IJ ONE
--- NOTE | 2018-08-29 09:15 | NUR ---
PT. TO CLINIC FOR C.T. OF HEAD PER MD ORDER WITH ADDITIONAL FASTING LABS TO BE DRAWN PER ORDER. CAREGIVER WITH PT, PROVIDING ADDITIONAL MEDICAL HX. PT. APPEARS IN NAD, VSS
[2018-08-29 09:20] VITALS: BP 154/79
--- NOTE | 2018-08-29 09:25 | NUR ---
IV insertion IV access obtained, via clean sterile technique by inserting 20 gauge catheter at after attempt(s). IV secured properly. No trauma to site. Patient tolerated procedure well.FASTING LABS SENT PER ORDER. STAT CREAT. TO BE OBTAINED.
[2018-08-29 09:55] LABS: Basophils # (auto) 0 uL; Basophils % (auto) 0.3 % (0.0-2.0); Eosinophils # (auto) 0.3 uL; Eosinophils % (auto) 2.8 % (0.0-7.0); Hematocrit 44.7 % (41.0-53.0); Hemoglobin 14.6 g/dL (13.5-17.5); Lymphocytes # (auto) 2.2 uL; Lymphocytes % (auto) 23.8 % (10.0-50.0); Mean Corpuscular Hemoglobin 28.8 pg (28.0-32.0); Mean Corpuscular Hgb Conc. 32.7 g/dL (32.0-36.0); Mean Corpuscular Volume 87.9 fL (80.0-100.0); Monocytes # (auto) 0.7 uL; Monocytes % (auto) 7.7 % (0.0-12.0); Neutrophils % (auto) 65.4 % (37.0-80.0); Nucleated Red Blood Cells % 0.2 %; Platelet Count (auto) 201 10^3/uL (140-450); Red Blood Cells 5.09 10^6/uL (4.5-5.90); Red Cell Distribution Width 15.3 % (11.8-14.3); White Blood Cell 9.2 10^3/uL (4.4-10.8)
[2018-08-29 10:12] LABS: Calcium 8.5 mg/dL (8.5-10.1); Potassium 3.9 mmol/L (3.5-5.1)
[2018-08-29 10:15] LABS: BUN/Creatinine Ratio 19.7
[2018-08-29 10:17] LABS: Free T4 (Free Thyroxine) 0.8 ng/dL (0.89-1.76); Prostate Specific Antigen 2.01 ng/mL (0.0-4.0)
--- NOTE | 2018-08-29 11:10 | NUR ---
PT. TO AND FROM C.T. TOLERATED PROCEDURE WELL. CAREGIVER GIVEN INSTRUCTIONS TO HOLD METFORMIN FOR 48 HRS POST PROCEDURE.
[2018-08-29 11:30] VITALS: BP 155/85
--- NOTE | 2018-08-29 11:30 | NUR ---
IV removal IV DC'd with sterile technique, catheter fully intact. Pressure dressing applied to site. Patient tolerated procedure well. Discharged with aftercare instructions per MD. NOTE: CAREGIVER INSTRUCTED TO HAVE PT. INCREASE WATER INTAKE OVER NEXT 24 HRS.
[2018-08-30 15:48] LABS: Urine Blood Negative /uL (Negative); Urine Specific Gravity 1.038 (1.001-1.035)
== END | disposition home or self-care (01) ==
LOC: Rad HDHVI 08:58
PROVIDERS: ATTEND Internal Medicine Cardiovascular Disease
DX: E11.9 Type 2 diabetes mellitus without complications (principal); G40.89 Other seizures; E11.319 Type 2 diabetes mellitus with unspecified diabetic retinopathy without macular edema; D51.9 Vitamin B12 deficiency anemia, unspecified; E55.9 Vitamin D deficiency, unspecified; E03.9 Hypothyroidism, unspecified; E29.1 Testicular hypofunction; C61 Malignant neoplasm of prostate; G91.9 Hydrocephalus, unspecified; N39.0 Urinary tract infection, site not specified; R41.82 Altered mental status, unspecified
CPT/HCPCS: 36415; 70470; 80048; 80061; 82306; 82542; 82607; 83036; 84153; 84403; 84439; 84443; 85025; G0463; Q9967; 81003

== ENCOUNTER → 2018-12-20 | Outpatient (CLI) | payer MEDICARE, MEDICAID ==
[~2018-12-20] MED LIST changes: -AMLO2.5T6 PO; +AMLO2.5T7 PO; -ENA10T PO; +ENAL10TA PO; -GLIP-115 PO; +GLIP5TAB12 PO; -IOHEXOL 350 MG/ML 100ML IJ ONE
== END | disposition home or self-care (01) ==
LOC: Rad HDHVI 08:52
PROVIDERS: ATTEND Internal Medicine Cardiovascular Disease
DX: I67.2 Cerebral atherosclerosis (principal)
CPT/HCPCS: 70450

== ENCOUNTER → 2019-01-12 | Outpatient (CLI) | payer MEDICARE, MEDICAID | END | disposition home or self-care (01) | LOC: Rad HDHVI 10:01 | PROVIDERS: ATTEND Internal Medicine | DX: R10.2 Pelvic and perineal pain (principal) | CPT/HCPCS: 72170 ==

== ENCOUNTER → 2019-02-07 | Outpatient (CLI) | payer MEDICARE, MEDICAID ==
[2019-02-07 12:13] LABS: Potassium 4.9 mmol/L (3.5-5.1)
[2019-02-07 12:22] LABS: Albumin 3.9 g/dL (3.4-5.0)
[2019-02-07 13:19] LABS: BUN/Creatinine Ratio 20.4
[2019-02-07 13:20] LABS: Bilirubin, Total 0.5 mg/dL (0.2-1.0); Calcium 9.4 mg/dL (8.5-10.1)
== END | disposition home or self-care (01) ==
LOC: LAB 09:01
PROVIDERS: ATTEND Internal Medicine
DX: E78.5 Hyperlipidemia, unspecified (principal); E11.9 Type 2 diabetes mellitus without complications; I10 Essential (primary) hypertension
CPT/HCPCS: 36415; 80053; 80061; 83036

== ENCOUNTER → 2019-03-12 | Outpatient (CLI) | payer MEDICARE, MEDICAID ==
[2019-03-12 12:11] LABS: Urine Blood Negative /uL (Negative); Urine Specific Gravity 1.027 (1.001-1.035)
== END | disposition home or self-care (01) ==
LOC: LAB 10:33
PROVIDERS: ATTEND Internal Medicine Cardiovascular Disease
DX: N39.0 Urinary tract infection, site not specified (principal)
CPT/HCPCS: 81003; 87086

== ENCOUNTER → 2019-03-27 | Outpatient (CLI) | payer MEDICARE, MEDICAID ==
[2019-03-27 12:04] LABS: Urine Blood Negative /uL (Negative); Urine Specific Gravity 1.034 (1.001-1.035)
[2019-03-27 12:08] LABS: Basophils # (auto) 0.1 uL; Basophils % (auto) 0.4 % (0.0-2.0); Eosinophils # (auto) 0 uL; Hematocrit 52.8 % (41.0-53.0); Hemoglobin 16.6 g/dL (13.5-17.5); Lymphocytes # (auto) 1.5 uL; Lymphocytes % (auto) 6.7 % (10.0-50.0); Mean Corpuscular Hemoglobin 28.1 pg (28.0-32.0); Mean Corpuscular Hgb Conc. 31.5 g/dL (32.0-36.0); Mean Corpuscular Volume 89.4 fL (80.0-100.0); Monocytes # (auto) 1.6 uL; Monocytes % (auto) 7.3 % (0.0-12.0); Neutrophils # (auto) 18.5 uL; Neutrophils % (auto) 85.6 % (37.0-80.0); Nucleated Red Blood Cells % 0.1 %; Platelet Count (auto) 207 10^3/uL (140-450); Red Blood Cells 5.91 10^6/uL (4.5-5.90); Red Cell Distribution Width 14.9 % (11.8-14.3); White Blood Cell 21.6 10^3/uL (4.4-10.8)
[2019-03-27 12:11] LABS: Potassium 4.7 mmol/L (3.5-5.1)
[2019-03-27 12:19] LABS: Albumin 3.8 g/dL (3.4-5.0); Bilirubin, Total 0.6 mg/dL (0.2-1.0); Calcium 9.8 mg/dL (8.5-10.1); Total Protein 8.4 g/dL (6.4-8.2)
== END | disposition home or self-care (01) ==
LOC: LAB 10:21
PROVIDERS: ATTEND Internal Medicine
DX: D64.9 Anemia, unspecified (principal); R42 Dizziness and giddiness; N39.0 Urinary tract infection, site not specified; E11.9 Type 2 diabetes mellitus without complications
CPT/HCPCS: 36415; 80053; 81003; 83036; 85025; 87086; 87088; 87186

== ENCOUNTER → 2019-05-03 | Outpatient (CLI) | payer MEDICARE, MEDICAID ==
[2019-05-03 16:11] LABS: Albumin 3.6 g/dL (3.4-5.0); Calcium 9.4 mg/dL (8.5-10.1); Potassium 4.4 mmol/L (3.5-5.1)
[2019-05-03 16:14] LABS: BUN/Creatinine Ratio 15.5; Bilirubin, Total 0.4 mg/dL (0.2-1.0)
== END | disposition home or self-care (01) ==
LOC: LAB 11:09
PROVIDERS: ATTEND Internal Medicine
DX: E11.9 Type 2 diabetes mellitus without complications (principal); Z79.899 Other long term (current) drug therapy
CPT/HCPCS: 36415; 80053; 83036

== ENCOUNTER → 2019-06-06 | Outpatient (CLI) | payer MEDICARE, MEDICAID ==
[~2019-06-06] MED LIST changes: +IOHEXOL 350 MG/ML 100ML IJ ONE
[2019-06-06 09:15] VITALS: BP 142/86
--- NOTE | 2019-06-06 10:54 | NUR ---
Discharge Instructions See e-MAR for any mediations given with this visit. Patient education given on disease process. Patient verbalized understanding. Previous labs reviewed. Patient discharged in stable condition with after care instructions and follow up appointment. PT HIGH FUNCTIONING AUTISM HAS CARE PROVIDER WITH HIM TOLERATED PROCEDURE WELL
[2019-06-06 10:56] VITALS: BP 156/89
== END | disposition home or self-care (01) ==
LOC: Rad HDHVI 08:53
PROVIDERS: ATTEND Internal Medicine
DX: I67.82 Cerebral ischemia (principal); I67.2 Cerebral atherosclerosis; R94.4 Abnormal results of kidney function studies
CPT/HCPCS: 36415; 70470; 82565; G0463; Q9967

== ENCOUNTER → 2019-09-12 | Outpatient (CLI) | payer MEDICARE, MEDICAID ==
[~2019-09-12] MED LIST changes: +AMLO-483 PO; -AMLO2.5T7 PO; -ENAL10TA PO; +ENAL10TA12 PO; -IOHEXOL 350 MG/ML 100ML IJ ONE
== END | disposition home or self-care (01) ==
LOC: Rad HDHVI 10:39
PROVIDERS: ATTEND Internal Medicine Cardiovascular Disease
DX: I67.2 Cerebral atherosclerosis (principal); G91.9 Hydrocephalus, unspecified; I67.82 Cerebral ischemia
CPT/HCPCS: 70450

== ENCOUNTER → 2019-09-21 | Outpatient (CLI) | payer MEDICARE, MEDICAID ==
[~2019-09-21] MED LIST changes: -AMLO-483 PO; +AMLO2.5T7 PO; +ENAL10TA PO; -ENAL10TA12 PO
== END | disposition home or self-care (01) ==
LOC: Rad HDHVI 09:02
PROVIDERS: ATTEND Internal Medicine Cardiovascular Disease
DX: I10 Essential (primary) hypertension (principal); J44.9 Chronic obstructive pulmonary disease, unspecified; R00.2 Palpitations
CPT/HCPCS: 93306

== ENCOUNTER → 2019-10-04 | Outpatient (CLI) | payer MEDICARE, MEDICAID ==
[~2019-10-04] VITALS: Ht 185.4 cm; Wt 95.3 kg
[~2019-10-04] MED LIST changes: +ADENOSINE 80 MG in GIVE UN-DILUTED 0 ML IV ONE; +ADENOSINE 90 MG/30 ML INJ IV ONE; +AMLO-483 PO; -AMLO2.5T7 PO; -ENAL10TA PO; +ENAL10TA12 PO
== END | disposition home or self-care (01) ==
LOC: Rad HDHVI 09:00
PROVIDERS: ATTEND Internal Medicine Cardiovascular Disease
DX: I25.10 Atherosclerotic heart disease of native coronary artery without angina pectoris (principal); I25.2 Old myocardial infarction; I10 Essential (primary) hypertension; E78.00 Pure hypercholesterolemia, unspecified; E11.9 Type 2 diabetes mellitus without complications; Z82.49 Family history of ischemic heart disease and other diseases of the circulatory system
CPT/HCPCS: 78452; 93005; 96374; 96375; A9500; J0153

== ENCOUNTER → 2019-12-31 | Outpatient (CLI) | payer MEDICARE, MEDICAID ==
[~2019-12-31] MED LIST changes: -ADENOSINE 80 MG in GIVE UN-DILUTED 0 ML IV ONE; -ADENOSINE 90 MG/30 ML INJ IV ONE
== END | disposition home or self-care (01) ==
LOC: LAB 09:09
PROVIDERS: ATTEND Internal Medicine
DX: E11.9 Type 2 diabetes mellitus without complications (principal)
CPT/HCPCS: 36415; 83036

== ENCOUNTER → 2020-01-04 | Outpatient (CLI) | payer MEDICARE, MEDICAID | END | disposition home or self-care (01) | LOC: Rad HDHVI 10:41 | PROVIDERS: ATTEND Internal Medicine Cardiovascular Disease | DX: R09.89 Other specified symptoms and signs involving the circulatory and respiratory systems (principal); R06.02 Shortness of breath; R13.10 Dysphagia, unspecified | CPT/HCPCS: 71046 ==

== ENCOUNTER → 2020-06-23 | Outpatient (CLI) | payer MEDICARE, MEDICAID | END | disposition home or self-care (01) | LOC: LAB 11:36 | PROVIDERS: ATTEND Internal Medicine Cardiovascular Disease | DX: E11.9 Type 2 diabetes mellitus without complications (principal) | CPT/HCPCS: 36415; 83036 ==

== ENCOUNTER → 2020-07-04 | Outpatient (CLI) | payer MEDICARE, MEDICAID | END | disposition home or self-care (01) | LOC: Rad HDHVI 10:05 | PROVIDERS: ATTEND Internal Medicine Cardiovascular Disease | DX: I67.2 Cerebral atherosclerosis (principal); G91.9 Hydrocephalus, unspecified | CPT/HCPCS: 70450 ==

== ENCOUNTER → 2020-12-29 | Outpatient (CLI) | payer MEDICARE, MEDICAID | END | disposition home or self-care (01) | LOC: LAB 09:09 | PROVIDERS: ATTEND Internal Medicine Cardiovascular Disease | DX: E11.9 Type 2 diabetes mellitus without complications (principal) | CPT/HCPCS: 36415; 83036 ==

== ENCOUNTER → 2021-02-17 | Outpatient (CLI) | payer MEDICARE, MEDICAID ==
[~2021-02-17] MED LIST changes: +IOHEXOL 350 MG/ML 100ML IJ ONE; +READI-CAT 2 (BARIUM SULF)(VANILLA SMOOTHIE) 450ML ONE; +SODIUM CHLORIDE 0.9% 250 ML IV ONE
[2021-02-17 10:15] VITALS: BP 157/84
[2021-02-17 11:23] LABS: Albumin 3.2 g/dL (3.4-5.0); Calcium 8.9 mg/dL (8.5-10.1); Potassium 4.6 mmol/L (3.5-5.1)
[2021-02-17 11:27] LABS: BUN/Creatinine Ratio 15.7; Bilirubin, Total 0.5 mg/dL (0.2-1.0); Total Protein 7.9 g/dL (6.4-8.2)
[2021-02-17 12:05] VITALS: BP 164/84
== END | disposition home or self-care (01) ==
LOC: Rad HDHVI 09:53
PROVIDERS: ATTEND Internal Medicine Cardiovascular Disease
DX: E86.0 Dehydration (principal); K76.0 Fatty (change of) liver, not elsewhere classified; N62 Hypertrophy of breast; K80.20 Calculus of gallbladder without cholecystitis without obstruction; N40.0 Benign prostatic hyperplasia without lower urinary tract symptoms; C61 Malignant neoplasm of prostate; R94.4 Abnormal results of kidney function studies; R63.4 Abnormal weight loss; I10 Essential (primary) hypertension; E11.9 Type 2 diabetes mellitus without complications
CPT/HCPCS: 36415; 71046; 74177; 80053; 96360; G0463; J7050; Q9967

== ENCOUNTER → 2021-02-23 | Outpatient (CLI) | payer MEDICARE, MEDICAID ==
[~2021-02-23] MED LIST changes: -IOHEXOL 350 MG/ML 100ML IJ ONE; -READI-CAT 2 (BARIUM SULF)(VANILLA SMOOTHIE) 450ML ONE; -SODIUM CHLORIDE 0.9% 250 ML IV ONE
[2021-02-23 12:08] LABS: Basophils # (auto) 0.1 10 ^3/uL (0-0.2); Basophils % (auto) 0.6 % (0.0-2.0); Eosinophils # (auto) 0.3 10 ^3/uL (0-0.8); Eosinophils % (auto) 3.3 % (0.0-7.0); Hemoglobin 15.9 g/dL (13.5-17.5); Lymphocytes % (auto) 23.7 % (10.0-50.0); Mean Corpuscular Hemoglobin 28.3 pg (28.0-32.0); Mean Corpuscular Hgb Conc. 31.7 g/dL (32.0-36.0); Mean Corpuscular Volume 89.2 fL (80.0-100.0); Monocytes # (auto) 0.6 10 ^3/uL (0-1.3); Monocytes % (auto) 6.9 % (0.0-12.0); Neutrophils # (auto) 5.6 10 ^3/uL (1.6-8.6); Neutrophils % (auto) 65.5 % (37.0-80.0); Nucleated Red Blood Cells % 0.3 %; Urine Blood Negative /uL (Negative); Urine Specific Gravity 1.032 (1.001-1.035); White Blood Cell 8.5 10^3/uL (4.4-10.8)
[2021-02-23 12:27] LABS: Potassium 4.4 mmol/L (3.5-5.1)
[2021-02-23 12:29] LABS: Free T4 (Free Thyroxine) 0.98 ng/dL (0.89-1.76); Prostate Specific Antigen 2.51 ng/mL (0.0-4.0)
[2021-02-23 12:47] LABS: Albumin 3.2 g/dL (3.4-5.0); BUN/Creatinine Ratio 16.3; Bilirubin, Total 0.6 mg/dL (0.2-1.0); Calcium 8.7 mg/dL (8.5-10.1); Total Protein 7.7 g/dL (6.4-8.2)
== END | disposition home or self-care (01) ==
LOC: LAB 09:18
PROVIDERS: ATTEND Internal Medicine Cardiovascular Disease
DX: C61 Malignant neoplasm of prostate (principal); D51.3 Other dietary vitamin B12 deficiency anemia; R53.1 Weakness; D64.9 Anemia, unspecified; R00.2 Palpitations; R30.0 Dysuria; I10 Essential (primary) hypertension; E11.9 Type 2 diabetes mellitus without complications; E55.9 Vitamin D deficiency, unspecified
CPT/HCPCS: 36415; 80053; 80061; 81003; 82306; 82607; 83036; 84153; 84403; 84439; 84443; 85025

== ENCOUNTER → 2021-02-25 | Outpatient (CLI) | payer MEDICARE, MEDICAID ==
[~2021-02-25] VITALS: Ht 185.4 cm; Wt 87.5 kg
[~2021-02-25] MED LIST changes: +ADENOSINE 74 MG in GIVE UN-DILUTED 0 ML IV ONE; +ADENOSINE 90 MG/30 ML INJ IV ONE
== END | disposition home or self-care (01) ==
LOC: Rad HDHVI 13:34
PROVIDERS: ATTEND Internal Medicine Cardiovascular Disease
DX: N28.1 Cyst of kidney, acquired (principal); M47.9 Spondylosis, unspecified
CPT/HCPCS: 78452; 93005; 96374; 96375; A9500; J0153

== ENCOUNTER 2021-03-25 20:15 | Emergency (ER) | payer MEDICARE, MEDICAID ==
[~2021-03-25] VITALS: Ht 190.5 cm; Wt 90.7 kg
[~2021-03-25 20:15] MED LIST changes: -ADENOSINE 74 MG in GIVE UN-DILUTED 0 ML IV ONE; -ADENOSINE 90 MG/30 ML INJ IV ONE
[2021-03-26 03:30] VITALS: BP 181/101
== END 2021-03-26 06:03 | disposition home or self-care (01) ==
LOC: ER 20:19
DX: Z46.6 Encounter for fitting and adjustment of urinary device (principal); N39.0 Urinary tract infection, site not specified; I10 Essential (primary) hypertension; I25.10 Atherosclerotic heart disease of native coronary artery without angina pectoris; Z79.82 Long term (current) use of aspirin; Z79.899 Other long term (current) drug therapy
CPT/HCPCS: 51702

== ENCOUNTER 2021-10-05 10:18 | Inpatient (IN) | payer MEDICARE, MEDICAID ==
[~2021-10-05] VITALS: Ht 182.9 cm; Wt 88.0 kg
[2021-10-05] MEDS ORDERED: SODIUM CHLORIDE 0.9% 1,000 ML IV ONE (10:30)
[2021-10-05 10:50] LABS: Basophils # (auto) 0.1 10 ^3/uL (0-0.2); Basophils % (auto) 0.6 % (0.0-2.0); Eosinophils # (auto) 0 10 ^3/uL (0-0.8); Eosinophils % (auto) 0.1 % (0.0-7.0); Hemoglobin 15.4 g/dL (13.5-17.5); Lymphocytes # (auto) 0.7 10 ^3/uL (0.4-5.4); Mean Corpuscular Hemoglobin 27.5 pg (28.0-32.0); Mean Corpuscular Hgb Conc. 31.5 g/dL (32.0-36.0); Mean Corpuscular Volume 87.4 fL (80.0-100.0); Monocytes # (auto) 1.9 10 ^3/uL (0-1.3); Monocytes % (auto) 14.7 % (0.0-12.0); Neutrophils # (auto) 10.5 10 ^3/uL (1.6-8.6); Neutrophils % (auto) 79.6 % (37.0-80.0); Nucleated Red Blood Cells % 0.1 %; Red Cell Distribution Width 14.6 % (11.8-14.3); White Blood Cell 13.2 10^3/uL (4.4-10.8)
[2021-10-05 11:05] LABS: Albumin 3.8 g/dL (3.4-5.0); Potassium 4.8 mmol/L (3.5-5.1)
[2021-10-05 11:08] LABS: Bilirubin, Total 0.5 mg/dL (0.2-1.0); Total Protein 8.3 g/dL (6.4-8.2)
[2021-10-05] MEDS ORDERED: HYDROcodone-ACET 5/325MG TAB PO PRN (14:15)
[2021-10-05] MEDS ORDERED: DOCUSATE SOD 100 MG CAP PO PRN (14:15)
[2021-10-05] MEDS ORDERED: ALBUTEROL SULF HFA 90MCG INH 200DOSE IN PRN ×2 (14:15)
[2021-10-05] MEDS ORDERED: ONDANSETRON HCL 4 MG/2 ML VIAL IV PRN (14:15)
[2021-10-05 15:45] LABS: Urine Bacteria NONE SEEN /hpf (None Seen); Urine Blood 2+ /uL (Negative); Urine Specific Gravity 1.032 (1.001-1.035); Urine WBC <1 /hpf (0 - 3)
[2021-10-05] MEDS: cefTRIAXone 1GM/50ML D5W 50 ML IV SCH (16:03)
[2021-10-05 16:35] LABS: Alanine Aminotransferase 114 U/L (16-61); Anion Gap 9 (5-15); Aspartate Aminotransferase 96 U/L (15-37); BUN/Creatinine Ratio 14.1; Blood Urea Nitrogen 14 mg/dL (7-18); Calcium 8.8 mg/dL (8.5-10.1); Carbon Dioxide 25 mmol/L (21-32); Chloride 106 mmol/L (98-107); GFR African American 95 mL/min; GFR Non-African American 79 mL/min; Glucose 127 mg/dL (74-106); Magnesium 2.2 mg/dL (1.6-2.6); Potassium 4.5 mmol/L (3.5-5.1); Sodium 140 mmol/L (136-145)
[2021-10-05 16:36] LABS: Lactic Acid w/Reflex 2.4 mmol/L (0.4-2.0)
[2021-10-05 16:38] LABS: Alkaline Phosphatase 96 U/L (45-117); Bilirubin, Total 0.4 mg/dL (0.2-1.0); Total Protein 8.5 g/dL (6.4-8.2)
[2021-10-05 16:48] LABS: Thyroid Stimulating Hormone 1.58 uIU/mL (0.358-3.74)
[2021-10-05 16:52] LABS: CRP High Sensitivity 7.19 mg/dL (< 0.3)
[2021-10-05 16:57] VITALS: BP 156/88
[2021-10-05 17:46] LABS: Basophils # (auto) 0 10 ^3/uL (0-0.2); Basophils % (auto) 0.5 % (0.0-2.0); Eosinophils # (auto) 0 10 ^3/uL (0-0.8); Hematocrit 48.1 % (41.0-53.0); Hemoglobin 15.3 g/dL (13.5-17.5); Lymphocytes # (auto) 0.9 10 ^3/uL (0.4-5.4); Lymphocytes % (auto) 8.1 % (10.0-50.0); Mean Corpuscular Hemoglobin 27.7 pg (28.0-32.0); Mean Corpuscular Hgb Conc. 31.8 g/dL (32.0-36.0); Mean Corpuscular Volume 86.9 fL (80.0-100.0); Monocytes # (auto) 1.8 10 ^3/uL (0-1.3); Monocytes % (auto) 16.7 % (0.0-12.0); Neutrophils % (auto) 74.7 % (37.0-80.0); Nucleated Red Blood Cells % 0.1 %; Red Blood Cells 5.53 10^6/uL (4.5-5.90); Red Cell Distribution Width 14.7 % (11.8-14.3); White Blood Cell 10.8 10^3/uL (4.4-10.8)
[2021-10-05] MEDS: BUDESONIDE (INHALATION) 180 MCG IH IN SCH (18:16)
[2021-10-05 18:25] VITALS: BP 156/94
[2021-10-05] MEDS: SODIUM CHLOR 0.9% PF (SALINE LOCK) 10ML VIAL/SYR IV SCH (21:54)
[2021-10-05] MEDS: ENOXAPARIN SOD 40 MG/0.4 ML SYRINGE SC SCH (21:55)
[2021-10-05 22:00] VITALS: BP 174/95
[2021-10-05] MEDS ORDERED: DOXYCYCLINE 100 MG TAB/CAP PO SCH (22:00)
[2021-10-05] MEDS ORDERED: LABETALOL HCL 5 MG/ML 4ML SYRINGE IV ONE (23:00)
[2021-10-06] MEDS: SODIUM CHLOR 0.9% PF (SALINE LOCK) 10ML VIAL/SYR IV SCH ×3 (05:18→21:43)
[2021-10-06 06:03] LABS: Hematocrit 47.6 % (41.0-53.0); Hemoglobin 15.5 g/dL (13.5-17.5); Mean Corpuscular Hemoglobin 28.6 pg (28.0-32.0); Mean Corpuscular Hgb Conc. 32.6 g/dL (32.0-36.0); Mean Corpuscular Volume 87.6 fL (80.0-100.0); Red Blood Cells 5.43 10^6/uL (4.5-5.90); Red Cell Distribution Width 14.6 % (11.8-14.3); White Blood Cell 9.3 10^3/uL (4.4-10.8)
[2021-10-06 06:05] LABS: Basophils % (manual) 0 (0.0-2.0); Blast Cells 0; Eosinophils % (manual) 0 (0-7); Metamyelocytes % 0; Myelocytes % 0; Promyelocytes % 0; Reactive Lymphocytes 0
[2021-10-06 06:07] LABS: Alanine Aminotransferase 99 U/L (16-61); Albumin 3.4 g/dL (3.4-5.0); Anion Gap 7 (5-15); Aspartate Aminotransferase 83 U/L (15-37); BUN/Creatinine Ratio 17.5; Blood Urea Nitrogen 14 mg/dL (7-18); Calcium 8.7 mg/dL (8.5-10.1); Carbon Dioxide 26 mmol/L (21-32); Chloride 109 mmol/L (98-107); GFR African American 122 mL/min; GFR Non-African American 100 mL/min; Glucose 127 mg/dL (74-106); Sodium 142 mmol/L (136-145)
[2021-10-06 06:10] LABS: Alkaline Phosphatase 81 U/L (45-117); Bilirubin, Total 0.3 mg/dL (0.2-1.0); Total Protein 7.3 g/dL (6.4-8.2)
[2021-10-06] MEDS: BUDESONIDE (INHALATION) 180 MCG IH IN SCH ×2 (07:05→10:00)
[2021-10-06 07:21] LABS: Band Neutrophils % (manual) 24; Lymphocytes % (manual) 12 (10.0-50.0); Monocytes % (manual) 17 (0-12)
[2021-10-06 08:20] VITALS: BP 162/94
[2021-10-06 09:00] VITALS: BP 162/94
[2021-10-06] MEDS: cefTRIAXone 1GM/50ML D5W 50 ML IV SCH (09:44)
[2021-10-06] MEDS: DexAMETHasone SOD PHOS 10MG/1ML VIAL INJ IV SCH (11:04)
[2021-10-06] MEDS: AZITHROMYCIN 500MG/ 250ML 250 ML IV SCH (11:04)
[2021-10-06] MEDS: CHOLECALCIFEROL (VITD3) 2,000 UNIT CAP/TAB PO SCH (11:05)
[2021-10-06] MEDS: ASCORBIC ACID 1,000 MG TAB PO SCH (11:05)
[2021-10-06] MEDS: ZINC SULFATE 220mg CAP or TAB PO SCH (11:05)
[2021-10-06] MEDS: ENOXAPARIN SOD 40 MG/0.4 ML SYRINGE SC SCH ×2 (11:06→21:44)
[2021-10-06] MEDS ORDERED: DEXTROSE (50%) 50ML SYRG IV PRN (12:00)
[2021-10-06] MEDS: ACCU-CHEK COMFORT CURVE STRIP VI SCH ×3 (12:32→21:44)
[2021-10-06] MEDS: InsuLIN REG 1unit/0.01ml Soln (100units/ml) SC SCH ×3 (13:08→21:50)
[2021-10-06] MEDS ORDERED: LORA10TA6 PO (14:56)
[2021-10-06] MEDS ORDERED: OLME40TA26 PO (14:56)
[2021-10-06] MEDS ORDERED: DAPA1TAB4 PO (14:56)
[2021-10-06 16:45] VITALS: BP 152/95
[2021-10-06 20:00] VITALS: BP 162/94
[2021-10-06 22:00] VITALS: BP 128/79
[2021-10-07 04:55] VITALS: BP 144/78
[2021-10-07] MEDS: InsuLIN REG 1unit/0.01ml Soln (100units/ml) SC SCH ×4 (06:17→21:37)
[2021-10-07] MEDS: ACCU-CHEK COMFORT CURVE STRIP VI SCH ×4 (06:17→21:33)
[2021-10-07] MEDS: SODIUM CHLOR 0.9% PF (SALINE LOCK) 10ML VIAL/SYR IV SCH ×3 (06:17→21:32)
[2021-10-07 09:00] VITALS: BP 152/89
[2021-10-07] MEDS: cefTRIAXone 1GM/50ML D5W 50 ML IV SCH (09:18)
[2021-10-07] MEDS: ENOXAPARIN SOD 40 MG/0.4 ML SYRINGE SC SCH ×2 (09:18→21:32)
[2021-10-07] MEDS: DexAMETHasone SOD PHOS 10MG/1ML VIAL INJ IV SCH (09:19)
[2021-10-07] MEDS: ZINC SULFATE 220mg CAP or TAB PO SCH (09:20)
[2021-10-07] MEDS: ASCORBIC ACID 1,000 MG TAB PO SCH (09:21)
[2021-10-07] MEDS: AZITHROMYCIN 500MG/ 250ML 250 ML IV SCH (10:52)
[2021-10-07] MEDS: CHOLECALCIFEROL (VITD3) 2,000 UNIT CAP/TAB PO SCH (10:53)
[2021-10-07 13:00] VITALS: BP 136/78
[2021-10-07 17:00] VITALS: BP 145/80
[2021-10-07 22:00] VITALS: BP 142/76
[2021-10-08 05:00] VITALS: BP 128/71
[2021-10-08] MEDS: ACCU-CHEK COMFORT CURVE STRIP VI SCH ×4 (06:46→22:23)
[2021-10-08] MEDS: SODIUM CHLOR 0.9% PF (SALINE LOCK) 10ML VIAL/SYR IV SCH ×3 (06:46→22:05)
[2021-10-08] MEDS: InsuLIN REG 1unit/0.01ml Soln (100units/ml) SC SCH ×4 (06:46→22:24)
[2021-10-08 08:59] VITALS: BP 123/72
[2021-10-08] MEDS: cefTRIAXone 1GM/50ML D5W 50 ML IV SCH (10:02)
[2021-10-08] MEDS: DexAMETHasone SOD PHOS 10MG/1ML VIAL INJ IV SCH (10:02)
[2021-10-08] MEDS: AZITHROMYCIN 500MG/ 250ML 250 ML IV SCH (10:02)
[2021-10-08] MEDS: ENOXAPARIN SOD 40 MG/0.4 ML SYRINGE SC SCH ×2 (10:03→22:06)
[2021-10-08] MEDS: CHOLECALCIFEROL (VITD3) 2,000 UNIT CAP/TAB PO SCH (10:04)
[2021-10-08] MEDS: ASCORBIC ACID 1,000 MG TAB PO SCH (10:04)
[2021-10-08] MEDS: ZINC SULFATE 220mg CAP or TAB PO SCH (10:04)
[2021-10-08 12:34] VITALS: BP 165/87
[2021-10-08] MEDS ORDERED: LOSARTAN POTASSIUM 50 MG TAB PO ONE (13:30)
[2021-10-08 15:05] VITALS: BP 132/80
[2021-10-08 20:00] VITALS: BP 132/80
[2021-10-08 22:00] VITALS: BP 132/74
[2021-10-08] MEDS: LOSARTAN POTASSIUM 50 MG TAB PO SCH (22:06)
[2021-10-09 05:00] VITALS: BP 139/75
[2021-10-09] MEDS: SODIUM CHLOR 0.9% PF (SALINE LOCK) 10ML VIAL/SYR IV SCH ×3 (06:04→22:00)
[2021-10-09] MEDS: ACCU-CHEK COMFORT CURVE STRIP VI SCH ×4 (06:17→22:00)
[2021-10-09] MEDS: InsuLIN REG 1unit/0.01ml Soln (100units/ml) SC SCH ×4 (06:18→23:01)
[2021-10-09 06:56] LABS: Basophils # (auto) 0 10 ^3/uL (0-0.2); Basophils % (auto) 0.2 % (0.0-2.0); Eosinophils # (auto) 0 10 ^3/uL (0-0.8); Hematocrit 51.6 % (41.0-53.0); Hemoglobin 16.2 g/dL (13.5-17.5); Lymphocytes # (auto) 1.8 10 ^3/uL (0.4-5.4); Lymphocytes % (auto) 20.8 % (10.0-50.0); Mean Corpuscular Hemoglobin 27.5 pg (28.0-32.0); Mean Corpuscular Hgb Conc. 31.5 g/dL (32.0-36.0); Mean Corpuscular Volume 87.4 fL (80.0-100.0); Monocytes # (auto) 1.3 10 ^3/uL (0-1.3); Monocytes % (auto) 15.1 % (0.0-12.0); Neutrophils # (auto) 5.5 10 ^3/uL (1.6-8.6); Neutrophils % (auto) 63.9 % (37.0-80.0); Nucleated Red Blood Cells % 0.1 %; Red Cell Distribution Width 14.5 % (11.8-14.3); White Blood Cell 8.6 10^3/uL (4.4-10.8)
[2021-10-09 07:12] LABS: Albumin 2.9 g/dL (3.4-5.0); Calcium 8.7 mg/dL (8.5-10.1); Potassium 4.6 mmol/L (3.5-5.1)
[2021-10-09 07:15] LABS: BUN/Creatinine Ratio 26.3; Bilirubin, Total 0.3 mg/dL (0.2-1.0); Total Protein 7.5 g/dL (6.4-8.2)
[2021-10-09 08:25] VITALS: BP 134/78
[2021-10-09] MEDS: cefTRIAXone 1GM/50ML D5W 50 ML IV SCH (09:56)
[2021-10-09] MEDS: AZITHROMYCIN 500MG/ 250ML 250 ML IV SCH (09:57)
[2021-10-09] MEDS: DexAMETHasone SOD PHOS 10MG/1ML VIAL INJ IV SCH (09:58)
[2021-10-09] MEDS: CHOLECALCIFEROL (VITD3) 2,000 UNIT CAP/TAB PO SCH (09:58)
[2021-10-09] MEDS: ENOXAPARIN SOD 40 MG/0.4 ML SYRINGE SC SCH ×2 (09:58→22:59)
[2021-10-09] MEDS: ZINC SULFATE 220mg CAP or TAB PO SCH (09:58)
[2021-10-09] MEDS: ASCORBIC ACID 1,000 MG TAB PO SCH (09:58)
[2021-10-09] MEDS: LOSARTAN POTASSIUM 50 MG TAB PO SCH ×2 (10:30→22:58)
[2021-10-09 12:30] VITALS: BP 130/82
[2021-10-09 16:25] VITALS: BP 130/84
[2021-10-09 23:18] VITALS: BP 102/81
[2021-10-10 05:32] VITALS: BP 131/82
[2021-10-10] MEDS: SODIUM CHLOR 0.9% PF (SALINE LOCK) 10ML VIAL/SYR IV SCH (06:00)
[2021-10-10] MEDS: InsuLIN REG 1unit/0.01ml Soln (100units/ml) SC SCH ×4 (07:00→22:57)
[2021-10-10] MEDS: ACCU-CHEK COMFORT CURVE STRIP VI SCH ×4 (07:00→22:00)
[2021-10-10 09:08] VITALS: BP 140/84
[2021-10-10] MEDS: AZITHROMYCIN 500MG/ 250ML 250 ML IV SCH (10:00)
[2021-10-10] MEDS: cefTRIAXone 1GM/50ML D5W 50 ML IV SCH (10:00)
[2021-10-10] MEDS: DexAMETHasone SOD PHOS 10MG/1ML VIAL INJ IV SCH (10:00)
[2021-10-10] MEDS: LOSARTAN POTASSIUM 50 MG TAB PO SCH ×2 (10:30→22:59)
[2021-10-10] MEDS: ASCORBIC ACID 1,000 MG TAB PO SCH (10:30)
[2021-10-10] MEDS: CHOLECALCIFEROL (VITD3) 2,000 UNIT CAP/TAB PO SCH (10:30)
[2021-10-10] MEDS: ZINC SULFATE 220mg CAP or TAB PO SCH (10:30)
[2021-10-10] MEDS: ENOXAPARIN SOD 40 MG/0.4 ML SYRINGE SC SCH ×2 (10:30→23:00)
[2021-10-10 12:51] VITALS: BP 128/76
[2021-10-10 16:36] VITALS: BP 148/85
[2021-10-10 22:00] VITALS: BP 133/82
[2021-10-11 05:00] VITALS: BP 142/83
[2021-10-11] MEDS: ACCU-CHEK COMFORT CURVE STRIP VI SCH ×4 (07:00→22:18)
[2021-10-11] MEDS: InsuLIN REG 1unit/0.01ml Soln (100units/ml) SC SCH ×4 (07:48→22:15)
[2021-10-11 09:00] VITALS: BP 103/52
[2021-10-11] MEDS: LOSARTAN POTASSIUM 50 MG TAB PO SCH ×2 (10:35→22:20)
[2021-10-11] MEDS: DexAMETHasone SOD PHOS 10MG/1ML VIAL INJ IV SCH (10:36)
[2021-10-11] MEDS: ZINC SULFATE 220mg CAP or TAB PO SCH ×2 (10:37→10:40)
[2021-10-11] MEDS: ASCORBIC ACID 1,000 MG TAB PO SCH ×2 (10:37→10:40)
[2021-10-11] MEDS: CHOLECALCIFEROL (VITD3) 2,000 UNIT CAP/TAB PO SCH (10:37)
[2021-10-11] MEDS: ENOXAPARIN SOD 40 MG/0.4 ML SYRINGE SC SCH ×2 (10:37→22:20)
[2021-10-11 13:00] VITALS: BP 119/77
[2021-10-11 17:00] VITALS: BP 117/65
[2021-10-11 22:00] VITALS: BP 124/74
[2021-10-12 05:05] VITALS: BP 156/92
[2021-10-12] MEDS: InsuLIN REG 1unit/0.01ml Soln (100units/ml) SC SCH ×4 (07:00→22:00)
[2021-10-12] MEDS: ACCU-CHEK COMFORT CURVE STRIP VI SCH ×4 (07:02→21:30)
[2021-10-12 09:00] VITALS: BP 106/65
[2021-10-12] MEDS: DexAMETHasone SOD PHOS 10MG/1ML VIAL INJ IV SCH (10:09)
[2021-10-12] MEDS: CHOLECALCIFEROL (VITD3) 2,000 UNIT CAP/TAB PO SCH (10:09)
[2021-10-12] MEDS: LOSARTAN POTASSIUM 50 MG TAB PO SCH ×2 (10:09→21:27)
[2021-10-12] MEDS: ENOXAPARIN SOD 40 MG/0.4 ML SYRINGE SC SCH ×2 (10:09→21:29)
[2021-10-12 13:00] VITALS: BP 111/64
[2021-10-12 17:54] VITALS: BP 110/65
[2021-10-12 22:00] VITALS: BP 138/82
[2021-10-13 05:00] VITALS: BP 148/79
[2021-10-13] MEDS: InsuLIN REG 1unit/0.01ml Soln (100units/ml) SC SCH ×4 (05:42→22:00)
[2021-10-13] MEDS: ACCU-CHEK COMFORT CURVE STRIP VI SCH ×4 (05:42→22:01)
[2021-10-13 08:00] VITALS: BP 110/54
[2021-10-13 09:00] VITALS: BP 160/84
[2021-10-13] MEDS: CHOLECALCIFEROL (VITD3) 2,000 UNIT CAP/TAB PO SCH (10:43)
[2021-10-13] MEDS: DexAMETHasone SOD PHOS 10MG/1ML VIAL INJ IV SCH (10:43)
[2021-10-13] MEDS: LOSARTAN POTASSIUM 50 MG TAB PO SCH ×2 (10:44→22:01)
[2021-10-13] MEDS: ASCORBIC ACID 1,000 MG TAB PO SCH (10:44)
[2021-10-13] MEDS: ENOXAPARIN SOD 40 MG/0.4 ML SYRINGE SC SCH ×2 (10:44→22:01)
[2021-10-13] MEDS: ZINC SULFATE 220mg CAP or TAB PO SCH (10:44)
[2021-10-13 12:48] VITALS: BP 157/86
[2021-10-13 15:54] LABS: Urine Bacteria FEW /hpf (None Seen); Urine Blood 2+ /uL (Negative); Urine Mucus FEW (None Seen); Urine Specific Gravity 1.017 (1.001-1.035); Urine WBC 24 /hpf (0 - 3)
[2021-10-13 16:33] VITALS: BP 137/79
[2021-10-13 18:20] LABS: Basophils # (auto) 0 10 ^3/uL (0-0.2); Eosinophils # (auto) 0 10 ^3/uL (0-0.8); Hemoglobin 16.8 g/dL (13.5-17.5); Lymphocytes # (auto) 0.8 10 ^3/uL (0.4-5.4); Monocytes # (auto) 0.6 10 ^3/uL (0-1.3); Monocytes % (auto) 5.8 % (0.0-12.0); Nucleated Red Blood Cells % 0.1 %
[2021-10-13 18:21] LABS: Basophils % (auto) 0.1 % (0.0-2.0); Hematocrit 54.4 % (41.0-53.0); Lymphocytes % (auto) 8.1 % (10.0-50.0); Mean Corpuscular Hemoglobin 27.5 pg (28.0-32.0); Mean Corpuscular Hgb Conc. 30.9 g/dL (32.0-36.0); Mean Corpuscular Volume 88.9 fL (80.0-100.0); Neutrophils # (auto) 8.9 10 ^3/uL (1.6-8.6); Red Blood Cells 6.12 10^6/uL (4.5-5.90); Red Cell Distribution Width 14.3 % (11.8-14.3); White Blood Cell 10.3 10^3/uL (4.4-10.8)
[2021-10-13 18:29] LABS: Albumin 2.9 g/dL (3.4-5.0); Calcium 8.9 mg/dL (8.5-10.1); Potassium 3.5 mmol/L (3.5-5.1)
[2021-10-13 18:32] LABS: BUN/Creatinine Ratio 22.6; Bilirubin, Total 0.6 mg/dL (0.2-1.0); Total Protein 7.8 g/dL (6.4-8.2)
[2021-10-13 22:00] VITALS: BP 132/76
[2021-10-14 05:29] VITALS: BP 106/80
[2021-10-14] MEDS: ACCU-CHEK COMFORT CURVE STRIP VI SCH ×4 (06:16→21:53)
[2021-10-14] MEDS: InsuLIN REG 1unit/0.01ml Soln (100units/ml) SC SCH ×4 (06:16→21:57)
[2021-10-14 08:20] VITALS: BP 139/74
[2021-10-14 09:00] VITALS: BP 139/74
[2021-10-14] MEDS: ZINC SULFATE 220mg CAP or TAB PO SCH (10:04)
[2021-10-14] MEDS: DexAMETHasone SOD PHOS 10MG/1ML VIAL INJ IV SCH (10:04)
[2021-10-14] MEDS: ENOXAPARIN SOD 40 MG/0.4 ML SYRINGE SC SCH ×2 (10:04→21:53)
[2021-10-14] MEDS: ASCORBIC ACID 1,000 MG TAB PO SCH (10:04)
[2021-10-14] MEDS: LOSARTAN POTASSIUM 50 MG TAB PO SCH ×2 (10:05→21:52)
[2021-10-14] MEDS: CHOLECALCIFEROL (VITD3) 2,000 UNIT CAP/TAB PO SCH (10:05)
[2021-10-14 13:00] VITALS: BP 163/79
[2021-10-14 16:36] VITALS: BP 135/67
[2021-10-14 22:00] VITALS: BP 159/95
[2021-10-15 05:00] VITALS: BP 129/76
[2021-10-15] MEDS: ACCU-CHEK COMFORT CURVE STRIP VI SCH ×4 (06:46→22:00)
[2021-10-15] MEDS: InsuLIN REG 1unit/0.01ml Soln (100units/ml) SC SCH ×4 (06:47→22:00)
[2021-10-15 07:45] VITALS: BP 134/87
[2021-10-15 09:00] VITALS: BP 134/87
[2021-10-15] MEDS: NYSTATIN TOPICAL POWDER 15GM TOP SCH ×2 (10:00→22:00)
[2021-10-15] MEDS: CHOLECALCIFEROL (VITD3) 2,000 UNIT CAP/TAB PO SCH (10:00)
[2021-10-15] MEDS: ZINC SULFATE 220mg CAP or TAB PO SCH (10:15)
[2021-10-15] MEDS: ASCORBIC ACID 1,000 MG TAB PO SCH (10:15)
[2021-10-15] MEDS: ENOXAPARIN SOD 40 MG/0.4 ML SYRINGE SC SCH ×2 (10:15→23:04)
[2021-10-15] MEDS: LOSARTAN POTASSIUM 50 MG TAB PO SCH ×2 (10:29→22:00)
[2021-10-15 13:00] VITALS: BP 138/89
[2021-10-15 16:50] VITALS: BP 121/70
[2021-10-15 22:00] VITALS: BP 155/74
[2021-10-16 05:00] VITALS: BP 160/96
[2021-10-16] MEDS: InsuLIN REG 1unit/0.01ml Soln (100units/ml) SC SCH ×4 (07:00→23:11)
[2021-10-16] MEDS: ACCU-CHEK COMFORT CURVE STRIP VI SCH ×4 (07:00→23:10)
[2021-10-16 07:50] VITALS: BP 149/85
[2021-10-16 09:00] VITALS: BP 149/85
[2021-10-16] MEDS: CHOLECALCIFEROL (VITD3) 2,000 UNIT CAP/TAB PO SCH (10:00)
[2021-10-16] MEDS: ZINC SULFATE 220mg CAP or TAB PO SCH (10:00)
[2021-10-16] MEDS: LOSARTAN POTASSIUM 50 MG TAB PO SCH ×3 (10:00→23:15)
[2021-10-16] MEDS: ASCORBIC ACID 1,000 MG TAB PO SCH (10:00)
[2021-10-16] MEDS: NYSTATIN TOPICAL POWDER 15GM TOP SCH ×2 (10:00→22:00)
[2021-10-16] MEDS: ENOXAPARIN SOD 40 MG/0.4 ML SYRINGE SC SCH ×2 (10:00→23:09)
[2021-10-16 13:00] VITALS: BP 162/87
[2021-10-16 17:00] VITALS: BP 178/91
[2021-10-16 22:02] VITALS: BP 116/60
[2021-10-16] MEDS: ACETAMINOPHEN 325 MG TAB PO PRN (23:40)
[2021-10-17] VITALS (57 sets, daily range): BP systolic 83–143; BP diastolic 40–76
[2021-10-17] MEDS: ACCU-CHEK COMFORT CURVE STRIP VI SCH ×4 (06:30→22:07)
[2021-10-17] MEDS: InsuLIN REG 1unit/0.01ml Soln (100units/ml) SC SCH ×4 (06:44→22:22)
[2021-10-17] MEDS ORDERED: ETOMIDATE (2MG/ML) 20ML VIAL IV ONE (08:05)
[2021-10-17] MEDS ORDERED: ROCURONIUM 10MG/ML 10ML VIAL IV ONE ×2 (08:05→10:23)
[2021-10-17] MEDS ORDERED: MIDAZOLAM DRIP 50 mg/50mL 50 ML IV ONE (08:25)
[2021-10-17] MEDS ORDERED: fentaNYL Drip 2500mCg/250mlNS 250 ML IV ONE (08:25)
[2021-10-17] MEDS ORDERED: NOREPINEPHRINE 8 MG/250ML KIT 250 ML IV ONE (08:25)
[2021-10-17] MEDS: fentaNYL Drip 2500mCg/250mlNS 250 ML IV SCH (09:37)
[2021-10-17] MEDS: MIDAZOLAM DRIP 50 mg/50mL 50 ML IV SCH ×2 (10:00→14:37)
[2021-10-17] MEDS: NOREPINEPHRINE 8 MG/250ML KIT 250 ML IV SCH (10:00)
[2021-10-17] MEDS: CHOLECALCIFEROL (VITD3) 2,000 UNIT CAP/TAB PO SCH (10:51)
[2021-10-17] MEDS: ZINC SULFATE 220mg CAP or TAB PO SCH (10:51)
[2021-10-17] MEDS: NYSTATIN TOPICAL POWDER 15GM TOP SCH ×3 (10:51→22:10)
[2021-10-17] MEDS: ASCORBIC ACID 1,000 MG TAB PO SCH (10:51)
[2021-10-17 11:27] LABS: Albumin 2.7 g/dL (3.4-5.0); Calcium 8.4 mg/dL (8.5-10.1); INR 1.11 (0.9-1.15); Magnesium 2.8 mg/dL (1.6-2.6); Partial Thromboplastin Time 31.3 sec (24.6-33.4)
[2021-10-17 11:31] LABS: BUN/Creatinine Ratio 13.8; Bilirubin, Total 1.2 mg/dL (0.2-1.0); Total Protein 7.2 g/dL (6.4-8.2)
[2021-10-17 12:40] LABS: Basophils # (auto) 0 10 ^3/uL (0-0.2); Basophils % (auto) 0.1 % (0.0-2.0); Eosinophils # (auto) 0 10 ^3/uL (0-0.8); Hemoglobin 15.4 g/dL (13.5-17.5); Lymphocytes % (auto) 4.5 % (10.0-50.0); Mean Corpuscular Hemoglobin 26.8 pg (28.0-32.0); Mean Corpuscular Hgb Conc. 30.2 g/dL (32.0-36.0); Mean Corpuscular Volume 88.8 fL (80.0-100.0); Monocytes % (auto) 4.4 % (0.0-12.0); Neutrophils # (auto) 20.7 10 ^3/uL (1.6-8.6); Nucleated Red Blood Cells % 0.2 %; Red Blood Cells 5.75 10^6/uL (4.5-5.90); Red Cell Distribution Width 14.5 % (11.8-14.3); White Blood Cell 22.7 10^3/uL (4.4-10.8)
[2021-10-17] MEDS: SODIUM CHLORIDE 0.9% 1,000 ML IV SCH (14:37)
[2021-10-17] MEDS ORDERED: PIPERACILLIN-TAZO 4.5GM 100 ML IV SCH (16:00)
[2021-10-17] MEDS: ACETAMINOPHEN 325 MG TAB PO PRN (16:41)
[2021-10-17] MEDS: PIPERACILLIN-TAZOB 3.375GM 100 ML IV SCH (17:53)
[2021-10-17] MEDS: LOSARTAN POTASSIUM 50 MG TAB PO SCH (22:00)
[2021-10-18] VITALS (103 sets, daily range): BP systolic 82–135; BP diastolic 49–72
[2021-10-18] MEDS: PIPERACILLIN-TAZOB 3.375GM 100 ML IV SCH ×4 (00:11→18:33)
[2021-10-18] MEDS: SODIUM CHLORIDE 0.9% 1,000 ML IV SCH ×3 (00:15→20:15)
[2021-10-18] MEDS: MIDAZOLAM DRIP 50 mg/50mL 50 ML IV SCH (00:53)
[2021-10-18] MEDS: NOREPINEPHRINE 8 MG/250ML KIT 250 ML IV SCH (03:30)
[2021-10-18 04:31] LABS: Basophils # (auto) 0 10 ^3/uL (0-0.2); Basophils % (auto) 0.2 % (0.0-2.0); Eosinophils # (auto) 0.2 10 ^3/uL (0-0.8); Hematocrit 48.9 % (41.0-53.0); Hemoglobin 15.2 g/dL (13.5-17.5); Lymphocytes % (auto) 4.6 % (10.0-50.0); Mean Corpuscular Volume 87.3 fL (80.0-100.0); Monocytes # (auto) 0.8 10 ^3/uL (0-1.3); Monocytes % (auto) 3.5 % (0.0-12.0); Neutrophils # (auto) 19.7 10 ^3/uL (1.6-8.6); Neutrophils % (auto) 90.7 % (37.0-80.0); Red Cell Distribution Width 14.9 % (11.8-14.3); White Blood Cell 21.7 10^3/uL (4.4-10.8)
[2021-10-18 04:39] LABS: Albumin 2.4 g/dL (3.4-5.0); BUN/Creatinine Ratio 16.7; Calcium 8.3 mg/dL (8.5-10.1); Potassium 4.3 mmol/L (3.5-5.1)
[2021-10-18] MEDS: ACCU-CHEK COMFORT CURVE STRIP VI SCH ×4 (07:24→21:38)
[2021-10-18] MEDS: InsuLIN REG 1unit/0.01ml Soln (100units/ml) SC SCH ×4 (07:31→22:33)
[2021-10-18] MEDS: LOSARTAN POTASSIUM 50 MG TAB PO SCH ×2 (10:00→21:38)
[2021-10-18] MEDS: PANTOPRAZOLE 40 MG/10 ML VIAL INJ IV SCH ×2 (10:16→21:38)
[2021-10-18] MEDS: CHOLECALCIFEROL (VITD3) 2,000 UNIT CAP/TAB PO SCH (12:44)
[2021-10-18] MEDS: ZINC SULFATE 220mg CAP or TAB PO SCH (12:44)
[2021-10-18] MEDS: ASCORBIC ACID 1,000 MG TAB PO SCH (12:44)
[2021-10-18] MEDS: NYSTATIN TOPICAL POWDER 15GM TOP SCH ×2 (12:45→21:39)
[2021-10-18] MEDS ORDERED: LIDOCAINE 1% (LOCAL ANESTH.) PF 5ml SDV ID ONE (12:45)
[2021-10-18] MEDS: ACETAMINOPHEN 500 MG TAB PO PRN ×2 (13:35→21:40)
[2021-10-18] MEDS ORDERED: IPRATROPIUM BROM 0.5 MG/2.5ML INH SOL NEB SCH (14:00)
[2021-10-18] MEDS ORDERED: ACETYLCYSTEINE 20%(200MG/ML) SOL 4ML NEB SCH (14:00)
[2021-10-18] MEDS: IPRATROPIUM BROM 0.5 MG/2.5ML INH SOL NEB SCH ×3 (14:57→22:22)
[2021-10-18] MEDS: ACETYLCYSTEINE 20%(200MG/ML) SOL 4ML NEB SCH ×2 (14:58→19:09)
[2021-10-18] MEDS: fentaNYL Drip 2500mCg/250mlNS 250 ML IV SCH (18:35)
[2021-10-18] MEDS: SODIUM CHLOR 0.9% PF (SALINE LOCK) 10ML VIAL/SYR IV SCH (21:38)
[2021-10-18] MEDS: HEPARIN SODIUM (PORCINE) 5000 UNITS/ML 1ML VIAL SC SCH (21:39)
[2021-10-18] MEDS: AZTREONAM 1GM INJ 0.5 GM in D5W 5% 50 ML IV SCH (21:42)
[2021-10-19] VITALS (103 sets, daily range): BP systolic 82–125; BP diastolic 47–75
[2021-10-19] MEDS: PIPERACILLIN-TAZOB 3.375GM 100 ML IV SCH ×4 (00:14→18:14)
[2021-10-19] MEDS: IPRATROPIUM BROM 0.5 MG/2.5ML INH SOL NEB SCH ×6 (02:45→22:52)
[2021-10-19] MEDS: AZTREONAM 1GM INJ 0.5 GM in D5W 5% 50 ML IV SCH ×3 (06:00→22:00)
[2021-10-19] MEDS: SODIUM CHLORIDE 0.9% 1,000 ML IV SCH ×2 (06:15→16:51)
[2021-10-19] MEDS: ACETYLCYSTEINE 20%(200MG/ML) SOL 4ML NEB SCH ×3 (06:23→19:10)
[2021-10-19] MEDS: HEPARIN SODIUM (PORCINE) 5000 UNITS/ML 1ML VIAL SC SCH ×3 (06:25→22:00)
[2021-10-19] MEDS: ACCU-CHEK COMFORT CURVE STRIP VI SCH ×4 (06:26→22:00)
[2021-10-19] MEDS: InsuLIN REG 1unit/0.01ml Soln (100units/ml) SC SCH ×4 (06:29→22:00)
[2021-10-19] MEDS: NOREPINEPHRINE 8 MG/250ML KIT 250 ML IV SCH (09:04)
[2021-10-19] MEDS: CHOLECALCIFEROL (VITD3) 2,000 UNIT CAP/TAB PO SCH (09:05)
[2021-10-19] MEDS: LOSARTAN POTASSIUM 50 MG TAB PO SCH ×2 (09:05→21:47)
[2021-10-19] MEDS: ZINC SULFATE 220mg CAP or TAB PO SCH (09:05)
[2021-10-19] MEDS: ASCORBIC ACID 1,000 MG TAB PO SCH (09:05)
[2021-10-19] MEDS: SODIUM CHLOR 0.9% PF (SALINE LOCK) 10ML VIAL/SYR IV SCH ×2 (09:05→22:00)
[2021-10-19] MEDS: NYSTATIN TOPICAL POWDER 15GM TOP SCH ×2 (09:05→22:00)
[2021-10-19] MEDS: PANTOPRAZOLE 40 MG/10 ML VIAL INJ IV SCH ×2 (09:05→22:57)
[2021-10-19] MEDS: MIDAZOLAM DRIP 50 mg/50mL 50 ML IV SCH (09:30)
[2021-10-19] MEDS: fentaNYL Drip 2500mCg/250mlNS 250 ML IV SCH (09:30)
[2021-10-19 13:22] LABS: Urine Bacteria MOD /hpf (None Seen); Urine Blood 3+ /uL (Negative); Urine Budding Yeast LOADED /hpf (None Seen); Urine Specific Gravity 1.024 (1.001-1.035); Urine Sperm PRESENT /hpf (None Seen); Urine WBC 739 /hpf (0 - 3); Urine WBC Clumps PRESENT /hpf (None Seen)
[2021-10-20] VITALS (61 sets, daily range): BP systolic 52–136; BP diastolic 26–75
[2021-10-20] MEDS: IPRATROPIUM BROM 0.5 MG/2.5ML INH SOL NEB SCH ×4 (02:58→13:54)
[2021-10-20 04:26] LABS: Potassium 4.8 mmol/L (3.5-5.1)
[2021-10-20 04:33] LABS: Albumin 1.8 g/dL (3.4-5.0); Bilirubin, Total 0.8 mg/dL (0.2-1.0); Calcium 7.4 mg/dL (8.5-10.1); Total Protein 6.3 g/dL (6.4-8.2)
[2021-10-20] MEDS: AZTREONAM 1GM INJ 0.5 GM in D5W 5% 50 ML IV SCH ×2 (05:54→15:49)
[2021-10-20] MEDS: HEPARIN SODIUM (PORCINE) 5000 UNITS/ML 1ML VIAL SC SCH (05:55)
[2021-10-20] MEDS: PIPERACILLIN-TAZOB 3.375GM 100 ML IV SCH ×3 (05:55→12:07)
[2021-10-20 05:57] LABS: Basophils # (auto) 0.1 10 ^3/uL (0-0.2); Basophils % (auto) 0.2 % (0.0-2.0); Eosinophils # (auto) 0.1 10 ^3/uL (0-0.8); Eosinophils % (auto) 0.2 % (0.0-7.0); Hematocrit 42.8 % (41.0-53.0); Hemoglobin 13.5 g/dL (13.5-17.5); Lymphocytes # (auto) 0.5 10 ^3/uL (0.4-5.4); Lymphocytes % (auto) 2.1 % (10.0-50.0); Mean Corpuscular Hemoglobin 28.2 pg (28.0-32.0); Mean Corpuscular Hgb Conc. 31.6 g/dL (32.0-36.0); Mean Corpuscular Volume 89.1 fL (80.0-100.0); Monocytes # (auto) 0.9 10 ^3/uL (0-1.3); Monocytes % (auto) 3.7 % (0.0-12.0); Neutrophils # (auto) 21.8 10 ^3/uL (1.6-8.6); Neutrophils % (auto) 93.8 % (37.0-80.0); Nucleated Red Blood Cells % 0.1 %; Red Cell Distribution Width 15.1 % (11.8-14.3); White Blood Cell 23.3 10^3/uL (4.4-10.8)
[2021-10-20] MEDS: ACCU-CHEK COMFORT CURVE STRIP VI SCH ×2 (06:10→12:04)
[2021-10-20] MEDS: InsuLIN REG 1unit/0.01ml Soln (100units/ml) SC SCH ×2 (06:16→12:04)
[2021-10-20] MEDS: ACETYLCYSTEINE 20%(200MG/ML) SOL 4ML NEB SCH ×2 (06:35→13:55)
[2021-10-20] MEDS: fentaNYL Drip 2500mCg/250mlNS 250 ML IV SCH (09:30)
[2021-10-20] MEDS: NOREPINEPHRINE 8 MG/250ML KIT 250 ML IV SCH (09:30)
[2021-10-20] MEDS: MIDAZOLAM DRIP 50 mg/50mL 50 ML IV SCH (09:30)
[2021-10-20] MEDS ORDERED: SODIUM CHLORIDE 0.9% 1,000 ML IV SCH (10:00)
[2021-10-20] MEDS ORDERED: HEPARIN SODIUM (PORCINE) 5000 UNITS/ML 1ML VIAL IV ONE (11:15)
[2021-10-20] MEDS ORDERED: HEPARIN DRIP/D5W 100UNITS/ML 250 ML IV SCH (11:45)
[2021-10-20] MEDS ORDERED: DexAMETHasone SOD PHOS 10MG/1ML VIAL INJ IV SCH (12:00)
[2021-10-20] MEDS: CHOLECALCIFEROL (VITD3) 2,000 UNIT CAP/TAB PO SCH (12:08)
[2021-10-20] MEDS: ZINC SULFATE 220mg CAP or TAB PO SCH (12:09)
[2021-10-20] MEDS: ASCORBIC ACID 1,000 MG TAB PO SCH (12:09)
[2021-10-20] MEDS: SODIUM CHLOR 0.9% PF (SALINE LOCK) 10ML VIAL/SYR IV SCH (12:16)
[2021-10-20 13:15] LABS: INR 1.06 (0.9-1.15); Partial Thromboplastin Time 33.5 sec (24.6-33.4)
[2021-10-20] MEDS ORDERED: MAGNESIUM SULFATE 1GM/100ML 100 ML IV ONE (16:01)
[2021-10-20] MEDS ORDERED: PHENYLEPHRINE IV 250 ML IV ONE (16:15)
[2021-10-20] MEDS ORDERED: AMIODARONE 450mg/250ml AE 250 ML IV ONE (16:17)
[2021-10-20] MEDS ORDERED: AMIODARONE 450mg/250ml AE 250 ML IV SCH ×3 (16:30→22:30)
[2021-10-20] MEDS ORDERED: PHENYLEPHRINE IV 250 ML IV SCH (16:30)
[2021-10-20] MEDS ORDERED: AMIODARONE HCL 150 MG in D5W 5% 100 ML IV ONE (16:30)
[2021-10-20] MEDS ORDERED: InsuLIN REG 1unit/0.01ml Soln (100units/ml) SC SCH ×2 (17:00→22:00)
[2021-10-20] MEDS ORDERED: PIPERACILLIN-TAZOB 2.25GM 50 ML IV SCH (18:00)
[2021-10-20] MEDS ORDERED: ADENOSINE 6 MG/2 ML INJ IV ONE (18:05)
[2021-10-20] MEDS ORDERED: SODIUM BICARBONATE 8.4% INJ 50ML SYRINGE IV ONE (18:05)
[2021-10-20] MEDS ORDERED: D5W 5% 100 ML BAG IV ONE (18:05)
[2021-10-20] MEDS ORDERED: EPINEPHrine HCL 1 MG/10 ML SYRG IV ONE (18:05)
[2021-10-20] MEDS ORDERED: APIXABAN 5 MG TAB PO SCH (22:00)
== END 2021-10-20 16:36 | DRG 720 ==
LOC: ER 10:18 → EDBD 10:18 → OVERFLOW 14:32 → WEST WING 18:17 → ICU WEST 10-17 08:44
PROVIDERS: ADMIT Internal Medicine; ATTEND Internal Medicine Cardiovascular Disease
PROC: 5A1945Z Respiratory Ventilation, 24-96 Consecutive Hours (ICD-10-PCS; principal; 2021-10-05)
PROC: 0BH17EZ Insertion of Endotracheal Airway into Trachea, Via Natural or Artificial Opening (ICD-10-PCS; 2021-10-05)
PROC: 02HV33Z Insertion of Infusion Device into Superior Vena Cava, Percutaneous Approach (ICD-10-PCS; 2021-10-17)
PROC: B548ZZA Ultrasonography of Superior Vena Cava, Guidance (ICD-10-PCS; 2021-10-17)
PROC: 5A12012 Performance of Cardiac Output, Single, Manual (ICD-10-PCS; 2021-10-20)
DX: A41.9 Sepsis, unspecified organism (principal); J96.01 Acute respiratory failure with hypoxia; J12.82 Pneumonia due to coronavirus disease 2019; U07.1 COVID-19; G93.41 Metabolic encephalopathy; G93.1 Anoxic brain damage, not elsewhere classified; E87.2 Acidosis; G91.2 (Idiopathic) normal pressure hydrocephalus; Z86.69 Personal history of other diseases of the nervous system and sense organs; E11.9 Type 2 diabetes mellitus without complications; I10 Essential (primary) hypertension; R27.0 Ataxia, unspecified; F79 Unspecified intellectual disabilities; G40.909 Epilepsy, unspecified, not intractable, without status epilepticus; N17.9 Acute kidney failure, unspecified; J98.11 Atelectasis; I25.10 Atherosclerotic heart disease of native coronary artery without angina pectoris
CPT/HCPCS: 36415; 36569; 36600; 70450; 71045; 71250; 72125; 72128; 74176; 76775; 80053; 81001; 82306; 82728; 82805; 82962; 83036; 83605; 83615; 83735; 84443; 84484; 85007; 85025; 85027; 85379; 85610; 85730; 86141; 87040; 87070; 87081; 87086; 87205; 92950; 93005; 93925; 93970; 94003; 94640; 96361; 96365; 97110; 97116; 97163; 97530; C9113; G0378; J0153; J0696; J1100; J1815; J2250; J2543; J3490; J7060